=== PATIENT | male | born 1965 | race Caucasian/White ===

== ENCOUNTER 2020-03-10 23:57 | Emergency (ER) | payer MEDICAID ==
[~2020-03-10] VITALS: Ht 188 cm; Wt 113.6 kg
[2020-03-11] MEDS ORDERED: ALOG25TA2 PO (00:19)
[2020-03-11] MEDS ORDERED: HYDR25TA4 PO (00:19)
[2020-03-11] MEDS ORDERED: LISI40TA4 PO (00:19)
[2020-03-11] MEDS ORDERED: INSU100I31 SUBCUT (00:19)
[2020-03-11] MEDS ORDERED: PANT20TA18 PO (00:19)
[2020-03-11] MEDS ORDERED: SIMV40TA PO (00:19)
[2020-03-11] MEDS ORDERED: RIVA20TA PO (00:19)
[2020-03-11] MEDS ORDERED: AMLO5TAB16 PO (00:19)
[2020-03-11] MEDS ORDERED: IBUP-1986 PO (00:19)
[2020-03-11] MEDS ORDERED: METO-411 PO (00:19)
[2020-03-11] MEDS ORDERED: METF-438 PO (00:19)
[2020-03-11 00:32] LABS: BASOPHILS % (AUTO) 0.4 % (0-1); EOSINOPHILS # (AUTO) 0.1 X10'3 (0-0.9); EOSINOPHILS % (AUTO) 0.9 % (0-6); HEMATOCRIT 33.3 % (42.0-52.0); HEMOGLOBIN 11.3 g/dl (14.0-17.9); LYMPHOCYTES % (AUTO) 24.8 % (21-51); MEAN CORPUSCULAR HEMOGLOBIN 26.8 PG (27.0-31.0); MEAN CORPUSCULAR VOLUME 78.7 FL (78-98); MONOCYTES # (AUTO) 0.6 X10'3 (0-0.9); MONOCYTES % (AUTO) 7.3 % (2-12); NEUTROPHILS # (AUTO) 5.5 X10'3 (1.8-7.7); NEUTROPHILS % (AUTO) 66.6 % (42-75); PLATELET COUNT 246 X10'3 (140-440); RED BLOOD COUNT 4.22 X10'6 (4.70-6.10); RED CELL DISTRIBUTION WIDTH 16.2 % (11.5-14.5); WHITE BLOOD COUNT 8.3 X10'3 (4.5-11.0)
[2020-03-11 00:40] LABS: CLARITY,URINE CLEAR (Clear); COLOR,URINE YELLOW (Yellow); GLUCOSE, URINE >=1000 mg/dl (Neg); KETONES,URINE NEGATIVE (Neg); LEUKOCYTE ESTERASE ,URINE NEGATIVE (Neg); NITRITES, URINE NEGATIVE (Neg); OCCULT BLOOD,URINE NEGATIVE (Neg); PROTEIN,URINE TRACE mg/dl (Neg); UROBILINOGEN,URINE 0.2 E.U/dL (0.2-1.0)
[2020-03-11 00:42] LABS: UA COLLECTION TYPE URINAL
[2020-03-11 00:50] LABS: BACTERIA,URINE FEW /HPF (Neg); RBC,URINE NONE SEEN /HPF (0-2); SQUAMOUS EPITHELIAL CELL,UR FEW /LPF (FEW); WBC,URINE 0-4 /HPF (0-4)
[2020-03-11 00:55] LABS: ALANINE AMINOTRANSFERASE 19 U/L (12-78); ALBUMIN 3.1 G/DL (3.4-5.0); ALBUMIN/GLOBULIN RATIO 0.8 (1.1-1.5); ALKALINE PHOSPHATASE 99 IU/L (46-116); ANION GAP 10 (8-16); ASPARTATE AMINO TRANSFERASE 9 U/L (10-37); BILIRUBIN,TOTAL 1.2 MG/DL (0.1-1.0); BLOOD UREA NITROGEN 14 MG/DL (7-18); BUN/CREATININE RATIO 13.7 (5.4-32.0); CALCIUM 9.4 MG/DL (8.5-10.1); CHLORIDE 99 MMOL/L (99-107); CREATININE 1.02 MG/DL (0.60-1.10); GLUCOSE 382 MG/DL (70-104); POTASSIUM 3.8 MMOL/L (3.5-5.1); SODIUM 135 MMOL/L (135-145); TOTAL CARBON DIOXIDE 25.6 MMOL/L (24-32); TOTAL PROTEIN 7.1 G/DL (6.4-8.2); eGFR 76 ML/MIN
[2020-03-11 02:34] VITALS: BP 164/87
== END 2020-03-11 02:33 | disposition home or self-care (01) ==
LOC: ER 23:57
DX: R06.02 Shortness of breath (principal); R51.9 Headache, unspecified; R19.7 Diarrhea, unspecified; Z20.828 Contact with and (suspected) exposure to other viral communicable diseases; I48.92 Unspecified atrial flutter; Z98.890 Other specified postprocedural states; Z72.89 Other problems related to lifestyle; Z79.4 Long term (current) use of insulin; Z79.899 Other long term (current) drug therapy
CPT/HCPCS: 36415; 71045; 80053; 81001; 83605; 83880; 84145; 84484; 85025; 87040; 93005; 99285

== ENCOUNTER 2021-09-03 07:36 | Inpatient (IN) | payer MEDICAID ==
[~2021-09-03] VITALS: Ht 188 cm; Wt 136.4 kg
[~2021-09-03 07:36] MED LIST: ALOG25TA2 PO; AMLO5TAB16 PO; HYDR25TA4 PO; IBUP-1986 PO; INSU100I31 SUBCUT; LISI40TA13 PO; METF-438 PO; METO-411 PO; PANT20TA18 PO; RIVA20TA PO; SIMV40TA PO
[2021-09-03 08:39] LABS: BASOPHILS % (AUTO) 0.4 % (0-1); EOSINOPHILS # (AUTO) 0.1 X10'3 (0-0.9); EOSINOPHILS % (AUTO) 0.7 % (0-6); HEMATOCRIT 34.5 % (42.0-52.0); HEMOGLOBIN 11.4 g/dl (14.0-17.9); LYMPHOCYTES # (AUTO) 1.5 X10'3 (1.1-4.8); LYMPHOCYTES % (AUTO) 15.8 % (21-51); MEAN CORPUSCULAR HEMOGLOBIN 25.9 PG (27.0-31.0); MEAN CORPUSCULAR HGB CONC 33.2 g/dL (33.0-36.5); MEAN PLATELET VOLUME 8.6 FL (7.4-10.4); MONOCYTES # (AUTO) 0.8 X10'3 (0-0.9); MONOCYTES % (AUTO) 8.1 % (2-12); NEUTROPHILS # (AUTO) 7.2 X10'3 (1.8-7.7); PLATELET COUNT 193 X10'3 (140-440); RED BLOOD COUNT 4.42 X10'6 (4.70-6.10); RED CELL DISTRIBUTION WIDTH 17.8 % (11.5-14.5); WHITE BLOOD COUNT 9.6 X10'3 (4.5-11.0)
[2021-09-03 08:48] LABS: ALANINE AMINOTRANSFERASE 26 U/L (12-78); ALBUMIN 3.8 G/DL (3.4-5.0); ALKALINE PHOSPHATASE 80 IU/L (46-116); ANION GAP 9 (8-16); ASPARTATE AMINO TRANSFERASE 16 U/L (10-37); BILIRUBIN,TOTAL 1.8 MG/DL (0.1-1.0); BLOOD UREA NITROGEN 16 MG/DL (7-18); BUN/CREATININE RATIO 15.5 (5.4-32.0); CALCIUM 9.1 MG/DL (8.5-10.1); CHLORIDE 103 MMOL/L (99-107); CREATININE 1.03 MG/DL (0.60-1.10); GLUCOSE 223 MG/DL (70-104); POTASSIUM 4.1 MMOL/L (3.5-5.1); SODIUM 141 MMOL/L (135-145); TOTAL CARBON DIOXIDE 29.3 MMOL/L (24-32); TOTAL PROTEIN 7.5 G/DL (6.4-8.2); eGFR 75 ML/MIN
[2021-09-03] MEDS ORDERED: iohexol 350MG/ML 100ml bottle IV ONE (11:41)
[2021-09-03] MEDS ORDERED: levoFLOXACIN-Levaquin 750MG/D5 150 ML IV ONE (12:35)
[2021-09-03] MEDS: MESSAGE TO NURSING PO SCH (12:46)
[2021-09-03] MEDS ORDERED: mag hydrox/Alum hydrox/simeth 30ml oral suspension PO PRN (13:40)
[2021-09-03] MEDS ORDERED: acetaminophen 325mg tablet PO PRN (13:40)
[2021-09-03] MEDS ORDERED: ondansetron/PF 4mg/2ml inj IV PRN (13:40)
[2021-09-03] MEDS ORDERED: magnesium hydroxide 30ml (MOM) UD suspension PO PRN (13:40)
[2021-09-03] MEDS ORDERED: potassium CL 10mEq/100ml bag 100 ML IV PRN (13:40)
[2021-09-03] MEDS ORDERED: potassium Cl 20 mEq SR tablet PO PRN ×2 (13:40)
[2021-09-03] MEDS ORDERED: magnesium 2GM in 50ml NS 50 ML IV PRN (13:40)
[2021-09-03] MEDS ORDERED: magnesium 4gm in 100ml NS 100 ML IV PRN (13:40)
[2021-09-03] MEDS: furosemide 40mg/4ml inj IV SCH ×2 (14:09→19:43)
[2021-09-03] MEDS ORDERED: GABA300C PO (14:28)
[2021-09-03] MEDS ORDERED: CLON0.2T PO (14:28)
[2021-09-03] MEDS ORDERED: ATOR40TA71 PO (14:28)
[2021-09-03] MEDS ORDERED: IBUP-1985 PO (14:28)
[2021-09-03] MEDS ORDERED: AMLO10TA PO (14:28)
[2021-09-03] MEDS ORDERED: CARV25TA2 PO (14:28)
[2021-09-03] MEDS ORDERED: HYDR25TA5 PO (14:28)
--- NOTE | 2021-09-03 14:33 | NUR ---
Report given to JOANNA Worley in PCU.
[2021-09-03 15:00] VITALS: BP 163/81
--- NOTE | 2021-09-03 18:30 | NUR ---
Patient in room U 3012. I have received report from JOANNA Ramos and had the opportunity to ask questions and assume patient care. Addendum: 09/03/21 at 2159 by Arlen Durán RN Amended: Links added.
[2021-09-03 18:55] VITALS: BP 150/91
[2021-09-03] MEDS: cloNIDine 0.1 mg tablet PO SCH (19:44)
[2021-09-03] MEDS: gabapentin 300mg capsule PO SCH (19:45)
[2021-09-03] MEDS: ibuprofen 200mg tablet PO SCH (19:46)
[2021-09-03] MEDS: carVEDilol 12.5mg tablet PO SCH (19:47)
[2021-09-03] MEDS: rivaroxaban 20mg tablet PO SCH (19:48)
[2021-09-03] MEDS: docusate sod 100mg capsule PO SCH (19:48)
[2021-09-03] MEDS: K and/or MAG REPLACEMENT MC SCH (20:00)
[2021-09-03] MEDS: pantoprazole 40mg Tablet.DR PO SCH (20:07)
[2021-09-03] MEDS: insulin glargine (Lantus) pen - multi-dose SQ SCH (21:35)
[2021-09-03] MEDS: amLODIPine 5mg tablet PO SCH (21:38)
[2021-09-03] MEDS: lisinopril 20mg tablet PO SCH (21:38)
[2021-09-03] MEDS: atorvastatin 20mg tablet PO SCH (21:38)
[2021-09-03 21:41] VITALS: BP 169/75
[2021-09-03 22:37] VITALS: BP 156/74
[2021-09-04] VITALS (8 sets, daily range): BP systolic 109–150; BP diastolic 52–86
--- NOTE | 2021-09-04 01:25 | NUR ---
HS WAS BRIEFLY IN THE 40'S, PT AROUSABLE, NO COMPLAINTS. PT STATES HAS SLEEP APNEA, DOES NOT WEAR A CPAP, BUT STATES IS SUPPOSE TO GET ONE. BG TAKEN 225 Addendum: 09/04/21 at 0126 by Arlen Durán RN Amended: Links added.
--- NOTE | 2021-09-04 02:53 | NUR ---
HR BACK UP 60'S PT ASYMPTOMATIC. Addendum: 09/04/21 at 0253 by Arlen Durán RN Amended: Links added.
--- NOTE | 2021-09-04 03:06 | NUR ---
SAT DROPPED DOWN TO 88% ON 2L, WHILE SLEEPING, P EASILY AROUSED NO COMPLAINTS. EXPLAINED TO PT HR DROPS AND O2 SAT, WILL KEEP ON CONT PULSE OX TO CHECK SAT. PT STATES HES WAS TOLD HR DROPS LOW DURING SLEEP STUDY, STATES THAT WAS AWHILE AGO. ENC PT TO F/U WITH MD AND SLEEP STUDY FOR POSS CPAP AND DANGERS OF SLEEP APNEA. . PT STATES HE WILL F/U "I DIDN'T REALIZE IT WAS THAT IMPORTANT." Addendum: 09/04/21 at 0309 by Arlen Durán RN Amended: Links added.
[2021-09-04 05:56] LABS: BASOPHILS % (AUTO) 0.4 % (0-1); EOSINOPHILS # (AUTO) 0.1 X10'3 (0-0.9); EOSINOPHILS % (AUTO) 1.4 % (0-6); HEMATOCRIT 32.4 % (42.0-52.0); HEMOGLOBIN 10.9 g/dl (14.0-17.9); LYMPHOCYTES # (AUTO) 2.1 X10'3 (1.1-4.8); LYMPHOCYTES % (AUTO) 27.8 % (21-51); MEAN CORPUSCULAR HEMOGLOBIN 26.1 PG (27.0-31.0); MEAN CORPUSCULAR HGB CONC 33.6 g/dL (33.0-36.5); MEAN CORPUSCULAR VOLUME 77.8 FL (78-98); MEAN PLATELET VOLUME 8.4 FL (7.4-10.4); MONOCYTES # (AUTO) 0.7 X10'3 (0-0.9); MONOCYTES % (AUTO) 9.7 % (2-12); NEUTROPHILS # (AUTO) 4.7 X10'3 (1.8-7.7); NEUTROPHILS % (AUTO) 60.7 % (42-75); PLATELET COUNT 191 X10'3 (140-440); RED BLOOD COUNT 4.17 X10'6 (4.70-6.10); RED CELL DISTRIBUTION WIDTH 17.7 % (11.5-14.5); WHITE BLOOD COUNT 7.7 X10'3 (4.5-11.0)
--- NOTE | 2021-09-04 06:07 | NUR ---
Problems reprioritized. Patient report given, questions answered & plan of care reviewed with JOANNA Ramos. Addendum: 09/04/21 at 0608 by Arlen Durán RN Amended: Links added.
[2021-09-04 06:11] LABS: ALBUMIN 3.2 G/DL (3.4-5.0); ANION GAP 9 (8-16); BLOOD UREA NITROGEN 21 MG/DL (7-18); BUN/CREATININE RATIO 15.3 (5.4-32.0); CALCIUM 8.1 MG/DL (8.5-10.1); CHLORIDE 102 MMOL/L (99-107); CREATININE 1.37 MG/DL (0.60-1.10); GLUCOSE 222 MG/DL (70-104); MAGNESIUM 1.1 MG/DL (1.5-2.4); POTASSIUM 3.9 MMOL/L (3.5-5.1); SODIUM 142 MMOL/L (135-145); TOTAL CARBON DIOXIDE 31.5 MMOL/L (24-32); eGFR 54 ML/MIN
[2021-09-04] MEDS ORDERED: pneumococcal 23-VAL P-sac vacc 25 mcg/0.5ml vial IMVAC ONE (06:35)
[2021-09-04] MEDS: carVEDilol 12.5mg tablet PO SCH ×2 (07:30→17:45)
[2021-09-04] MEDS: K and/or MAG REPLACEMENT MC SCH ×2 (08:00→19:51)
[2021-09-04] MEDS: docusate sod 100mg capsule PO SCH ×2 (08:00→19:49)
[2021-09-04] MEDS: cloNIDine 0.1 mg tablet PO SCH ×2 (08:00→19:49)
[2021-09-04] MEDS: gabapentin 300mg capsule PO SCH ×2 (08:11→19:49)
[2021-09-04] MEDS: HYDROchlorothiazide 25mg tablet PO SCH (08:14)
[2021-09-04] MEDS: insulin glargine (Lantus) pen - multi-dose SQ SCH ×2 (08:21→20:49)
[2021-09-04] MEDS: ibuprofen 200mg tablet PO SCH ×3 (08:22→17:46)
[2021-09-04] MEDS: linagliptin 5mg tablet PO SCH (08:23)
[2021-09-04] MEDS: pantoprazole 40mg Tablet.DR PO SCH ×2 (08:23→19:49)
[2021-09-04] MEDS: levoFLOXACIN-Levaquin 500mg/D5 100 ML IV SCH (08:47)
[2021-09-04] MEDS: furosemide 40mg/4ml inj IV SCH (08:48)
[2021-09-04] MEDS: MESSAGE TO NURSING PO SCH (10:00)
--- NOTE | 2021-09-04 10:47 | NUR ---
DM Consult: Pt admit DX PNA and CHF exacerbation hx T2DM A1C 8.3% takes Lantus 35 units BID and metformin BID at home per EMR. Pt seen by RD for written/verbal DM ed w/ RD contact information provided. Pt reports has never received DM ed before unsure what diet guidelines are for DM. RD provided thorough DM ed reviewed types of carbs, carb portioning, hydration, protein sources, balanced meals, snacks, and encouraged pt to contact dietitian's office if further questions/concerns. Pt has no teeth reports dentures at home though no issues chewing/swallowing; does report large appetite is agreeable to double proteins TIDWM. Dietary notified. Addendum: 09/04/21 at [address] Amended: Links added.
--- NOTE | 2021-09-04 11:41 | NUR ---
observed medication administration/reviewed physical assessment documentation for [facility] director of emergency nursing Jose Luis
[2021-09-04] MEDS: rivaroxaban 20mg tablet PO SCH (17:45)
--- NOTE | 2021-09-04 18:30 | NUR ---
Patient in room U 3012. I have received report from JOANNA Ramos and had the opportunity to ask questions and assume patient care. Pt sitting up in chair no complaints. Addendum: 09/04/21 at 1855 by Arlen uDrán RN Amended: Links added.
[2021-09-04] MEDS: magnesium Cl slow-release 64mg tablet PO PRN (19:52)
[2021-09-04] MEDS: atorvastatin 20mg tablet PO SCH (20:47)
[2021-09-04] MEDS: lisinopril 20mg tablet PO SCH (20:47)
[2021-09-04] MEDS: amLODIPine 5mg tablet PO SCH (20:48)
[2021-09-05 02:00] VITALS: BP 148/68
--- NOTE | 2021-09-05 05:37 | NUR ---
AWAKE TALKING ON PHONE, NO COMPLAINTS. Addendum: 09/05/21 at 0538 by Arlen Durán RN Amended: Links added.
[2021-09-05 05:54] LABS: BASOPHILS % (AUTO) 0.5 % (0-1); EOSINOPHILS # (AUTO) 0.2 X10'3 (0-0.9); EOSINOPHILS % (AUTO) 1.8 % (0-6); HEMATOCRIT 34.1 % (42.0-52.0); HEMOGLOBIN 11.2 g/dl (14.0-17.9); LYMPHOCYTES % (AUTO) 22.7 % (21-51); MEAN CORPUSCULAR HEMOGLOBIN 25.5 PG (27.0-31.0); MEAN CORPUSCULAR VOLUME 77.3 FL (78-98); MEAN PLATELET VOLUME 8.2 FL (7.4-10.4); MONOCYTES # (AUTO) 0.8 X10'3 (0-0.9); MONOCYTES % (AUTO) 9.1 % (2-12); NEUTROPHILS # (AUTO) 5.7 X10'3 (1.8-7.7); NEUTROPHILS % (AUTO) 65.9 % (42-75); PLATELET COUNT 210 X10'3 (140-440); RED BLOOD COUNT 4.41 X10'6 (4.70-6.10); RED CELL DISTRIBUTION WIDTH 17.6 % (11.5-14.5); WHITE BLOOD COUNT 8.7 X10'3 (4.5-11.0)
[2021-09-05 06:00] VITALS: BP 156/89
[2021-09-05 06:12] LABS: ALBUMIN 3.1 G/DL (3.4-5.0); ANION GAP 11 (8-16); BLOOD UREA NITROGEN 31 MG/DL (7-18); BUN/CREATININE RATIO 22.8 (5.4-32.0); CALCIUM 8.3 MG/DL (8.5-10.1); CHLORIDE 102 MMOL/L (99-107); CREATININE 1.36 MG/DL (0.60-1.10); GLUCOSE 209 MG/DL (70-104); MAGNESIUM 1.3 MG/DL (1.5-2.4); POTASSIUM 3.6 MMOL/L (3.5-5.1); SODIUM 139 MMOL/L (135-145); TOTAL CARBON DIOXIDE 26.5 MMOL/L (24-32); eGFR 54 ML/MIN
[2021-09-05] MEDS: K and/or MAG REPLACEMENT MC SCH (08:00)
[2021-09-05] MEDS ORDERED: furosemide 40mg/4ml inj IV SCH (08:00)
[2021-09-05] MEDS: insulin glargine (Lantus) pen - multi-dose SQ SCH (08:06)
[2021-09-05] MEDS: levoFLOXACIN-Levaquin 500mg/D5 100 ML IV SCH (08:09)
[2021-09-05] MEDS: pantoprazole 40mg Tablet.DR PO SCH (08:10)
[2021-09-05] MEDS: gabapentin 300mg capsule PO SCH (08:10)
[2021-09-05] MEDS: linagliptin 5mg tablet PO SCH (08:10)
[2021-09-05] MEDS: cloNIDine 0.1 mg tablet PO SCH (08:10)
[2021-09-05] MEDS: carVEDilol 12.5mg tablet PO SCH (08:10)
[2021-09-05] MEDS: docusate sod 100mg capsule PO SCH (08:10)
[2021-09-05] MEDS: ibuprofen 200mg tablet PO SCH (08:11)
[2021-09-05] MEDS: HYDROchlorothiazide 25mg tablet PO SCH (08:11)
[2021-09-05] MEDS: magnesium Cl slow-release 64mg tablet PO PRN (08:13)
[2021-09-05] MEDS ORDERED: pneumococcal 23-VAL P-sac vacc 25 mcg/0.5ml vial IMVAC ONE (10:00)
[2021-09-05] MEDS ORDERED: POTA-207 PO (10:42)
[2021-09-05] MEDS ORDERED: FURO-149 PO (10:42)
--- NOTE | 2021-09-05 11:57 | NUR ---
Discharge paperwork reviewed with patient. Home medication returned from pharmacy, sent home with patient as well as rest of belongings. IV removed, catheter tip intact. Patient free from injuries.
== END 2021-09-05 11:55 | disposition home or self-care (01) | DRG 194 ==
LOC: ER 07:37 → ED HOLD 13:46 → EDBEDREQ 14:01 → PCU 3S 14:49
PROVIDERS: ADMIT Family Medicine; ATTEND Family Medicine
PROC: B32T1ZZ Computerized Tomography (CT Scan) of Left Pulmonary Artery using Low Osmolar Contrast (ICD-10-PCS; principal; 2021-09-03)
PROC: B3201ZZ Computerized Tomography (CT Scan) of Thoracic Aorta using Low Osmolar Contrast (ICD-10-PCS; 2021-09-03)
PROC: B32S1ZZ Computerized Tomography (CT Scan) of Right Pulmonary Artery using Low Osmolar Contrast (ICD-10-PCS; 2021-09-03)
DX: I11.0 Hypertensive heart disease with heart failure (principal); I27.20 Pulmonary hypertension, unspecified; J18.9 Pneumonia, unspecified organism; I50.33 Acute on chronic diastolic (congestive) heart failure; E11.9 Type 2 diabetes mellitus without complications; E66.01 Morbid (severe) obesity due to excess calories; E78.5 Hyperlipidemia, unspecified; Z20.822 Contact with and (suspected) exposure to COVID-19; I48.91 Unspecified atrial fibrillation; G47.30 Sleep apnea, unspecified; Z79.899 Other long term (current) drug therapy; Z68.38 Body mass index [BMI] 38.0-38.9, adult
CPT/HCPCS: 36415; 71045; 71275; 80048; 80053; 82948; 83036; 83605; 83735; 83880; 84484; 85025; 87040; 87081; 87502; 87503; 87635; 93005; 93306; 96365; 97161; 99285; C9803; G0378; J1815; J1940; J1956; Q9967

== ENCOUNTER 2022-06-15 21:11 | Inpatient (IN) | payer MEDICAID ==
[~2022-06-15] VITALS: Ht 193 cm; Wt 142.5 kg
[~2022-06-15 21:11] MED LIST changes: +AMLO10TA PO; -AMLO5TAB16 PO; +ATOR40TA71 PO; +CARV25TA2 PO; +CLON0.2T PO; +FURO-149 PO; +GABA300C PO; -HYDR25TA4 PO; +HYDR25TA5 PO; +IBUP-1985 PO; -IBUP-1986 PO; -METO-411 PO; -SIMV40TA PO; +temazepam 15mg capsule PO PRN
[2022-06-15 21:38] LABS: BASOPHILS % (AUTO) 0.3 % (0-1); EOSINOPHILS # (AUTO) 0.1 X10'3 (0-0.9); EOSINOPHILS % (AUTO) 1.1 % (0-6); HEMATOCRIT 32.9 % (42.0-52.0); HEMOGLOBIN 10.5 g/dl (14.0-17.9); LYMPHOCYTES # (AUTO) 1.4 X10'3 (1.1-4.8); LYMPHOCYTES % (AUTO) 11.9 % (21-51); MEAN CORPUSCULAR HEMOGLOBIN 25.7 PG (27.0-31.0); MEAN CORPUSCULAR HGB CONC 31.8 g/dL (33.0-36.5); MEAN CORPUSCULAR VOLUME 80.8 FL (78-98); MEAN PLATELET VOLUME 8.3 FL (7.4-10.4); MONOCYTES % (AUTO) 8.5 % (2-12); NEUTROPHILS # (AUTO) 9.3 X10'3 (1.8-7.7); NEUTROPHILS % (AUTO) 78.2 % (42-75); PLATELET COUNT 247 X10'3 (140-440); RED BLOOD COUNT 4.08 X10'6 (4.70-6.10); RED CELL DISTRIBUTION WIDTH 18.5 % (11.5-14.5); WHITE BLOOD COUNT 11.9 X10'3 (4.5-11.0)
[2022-06-15] MEDS ORDERED: nitroGLYCERIN 0.4mg/hour patch TD ONE (21:40)
[2022-06-15] MEDS ORDERED: enalaprilat dihydrate 2.5mg/2ml vial IV ONE (21:40)
[2022-06-15] MEDS ORDERED: furosemide 10 MG/1 ML 10ml inj IV ONE (21:40)
[2022-06-15 21:47] LABS: ALANINE AMINOTRANSFERASE 26 U/L (12-78); ALBUMIN 3.5 G/DL (3.4-5.0); ALKALINE PHOSPHATASE 84 IU/L (46-116); ANION GAP 11 (8-16); ASPARTATE AMINO TRANSFERASE 14 U/L (10-37); BILIRUBIN,TOTAL 2.1 MG/DL (0.1-1.0); BLOOD UREA NITROGEN 18 MG/DL (7-18); BUN/CREATININE RATIO 11.7 (5.4-32.0); CHLORIDE 106 MMOL/L (99-107); CREATININE 1.54 MG/DL (0.60-1.10); GLUCOSE 175 MG/DL (70-104); SODIUM 144 MMOL/L (135-145); TOTAL CARBON DIOXIDE 27.2 MMOL/L (24-32); TOTAL PROTEIN 7.1 G/DL (6.4-8.2); eGFR 47 ML/MIN
[2022-06-15 21:53] LABS: MAGNESIUM 1.8 MG/DL (1.5-2.4)
[2022-06-15] MEDS ORDERED: mag hydrox/Alum hydrox/simeth 30ml oral suspension PO PRN (22:05)
[2022-06-15] MEDS ORDERED: glucagon, human recombinant 1mg kit SUBCUT PRN (22:05)
[2022-06-15] MEDS ORDERED: magnesium Cl slow-release 64mg tablet PO PRN (22:05)
[2022-06-15] MEDS ORDERED: dextrose 50%-water 50ml dispensing syringe IV PRN ×2 (22:05)
[2022-06-15] MEDS ORDERED: potassium Cl 40MEQ/1/2NS 520ml 520 ML IV PRN (22:05)
[2022-06-15] MEDS ORDERED: magnesium hydroxide 30ml (MOM) UD suspension PO PRN (22:05)
[2022-06-15] MEDS ORDERED: acetaminophen 650mg rectal suppository RC PRN (22:05)
[2022-06-15] MEDS ORDERED: ondansetron 4mg rapidly disintigrating tab PO PRN (22:05)
[2022-06-15] MEDS ORDERED: enalaprilat dihydrate 2.5mg/2ml vial IV PRN (22:05)
[2022-06-15] MEDS ORDERED: PERFLUTREN PROTEIN-A MICROSPHR (Optison) 0.22 MG/ML 3ML VIAL IV PRN (22:05)
[2022-06-15] MEDS ORDERED: potassium Cl 20 mEq SR tablet PO PRN (22:05)
[2022-06-15] MEDS ORDERED: MESSAGE TO PHARMACY PO ONE (22:05)
[2022-06-15] MEDS ORDERED: magnesium 4gm in 100ml NS 100 ML IV PRN (22:05)
[2022-06-15] MEDS ORDERED: acetaminophen 325mg tablet PO PRN (22:05)
[2022-06-15] MEDS ORDERED: ondansetron/PF 4mg/2ml inj IV PRN (22:05)
[2022-06-15] MEDS ORDERED: DEXTROSE 15 GM of carb/4 tabs (each vial/BOTTLE has 4 tablets) PO PRN ×2 (22:05)
[2022-06-15] MEDS: acetaminophen 325mg tablet PO PRN (22:44)
--- NOTE | 2022-06-15 22:45 | NUR ---
c/o DUFF. Gave him tylenol. He has company.
[2022-06-15] MEDS: ipratropium/albuterol 3ml nebule NEB PRN (23:44)
[2022-06-16 03:02] LABS: BASOPHILS % (AUTO) 0.4 % (0-1); EOSINOPHILS # (AUTO) 0.1 X10'3 (0-0.9); EOSINOPHILS % (AUTO) 1.1 % (0-6); HEMATOCRIT 32.1 % (42.0-52.0); HEMOGLOBIN 10.4 g/dl (14.0-17.9); LYMPHOCYTES # (AUTO) 1.2 X10'3 (1.1-4.8); LYMPHOCYTES % (AUTO) 10.9 % (21-51); MEAN CORPUSCULAR HGB CONC 32.3 g/dL (33.0-36.5); MEAN CORPUSCULAR VOLUME 80.5 FL (78-98); MEAN PLATELET VOLUME 8.8 FL (7.4-10.4); MONOCYTES % (AUTO) 9.4 % (2-12); NEUTROPHILS # (AUTO) 8.6 X10'3 (1.8-7.7); NEUTROPHILS % (AUTO) 78.2 % (42-75); PLATELET COUNT 233 X10'3 (140-440); RED BLOOD COUNT 3.99 X10'6 (4.70-6.10); RED CELL DISTRIBUTION WIDTH 18.9 % (11.5-14.5)
[2022-06-16 03:13] LABS: ALANINE AMINOTRANSFERASE 23 U/L (12-78); ALBUMIN 3.4 G/DL (3.4-5.0); ALBUMIN/GLOBULIN RATIO 0.9 (1.1-1.5); ALKALINE PHOSPHATASE 86 IU/L (46-116); ANION GAP 8 (8-16); ASPARTATE AMINO TRANSFERASE 13 U/L (10-37); BILIRUBIN,TOTAL 2.4 MG/DL (0.1-1.0); BLOOD UREA NITROGEN 20 MG/DL (7-18); CHLORIDE 104 MMOL/L (99-107); CREATININE 1.54 MG/DL (0.60-1.10); GLUCOSE 187 MG/DL (70-104); POTASSIUM 3.6 MMOL/L (3.5-5.1); SODIUM 143 MMOL/L (135-145); TOTAL CARBON DIOXIDE 30.6 MMOL/L (24-32); TOTAL PROTEIN 7.2 G/DL (6.4-8.2); eGFR 47 ML/MIN
[2022-06-16 03:18] LABS: MAGNESIUM 1.8 MG/DL (1.5-2.4); PHOSPHORUS 4.8 MG/DL (2.3-4.5)
[2022-06-16 03:50] LABS: ANISOCYTOSIS 2+; ELLIPTOCYTES 1+; PLATELET ESTIMATE NORMAL
[2022-06-16 03:51] LABS: POLYCHROMASIA 2+; ROULEAUX 1+
[2022-06-16 03:52] LABS: HYPOCHROMASIA 1+
[2022-06-16 04:00] LABS: ABG BASE EXCESS 3.6 mmol/L (-2.0-2.0); ABG OXYGEN SATURATION 85.2 % (94-97); ABG PCO2 (T) 47.6 mmHg (35.0-48.0); ABG PO2 (T) 50.9 mmHg (75.0-100.0); ALLEN'S TEST POSITIVE; FCOHb 1.5 % (0.0-3.9); FLOW 6 L/min; FO2Hb 83.9 % (94-97)
--- NOTE | 2022-06-16 04:22 | NUR ---
PT PLACED ON CPAP BY RESP.
[2022-06-16] MEDS ORDERED: LORazepam 2 mg/ml vial IV PRN (05:10)
[2022-06-16] MEDS: acetaminophen 325mg tablet PO PRN ×3 (05:16→17:19)
--- NOTE | 2022-06-16 05:22 | NUR ---
PT AWOKE FEELING ANXIOUS AND REMOVED HIS CPAP. PT REQUESTED ANTIANXIETY MEDICATION SO THAT HE CAN PUT HIS MASK BACK ON AND SLEEP. PT GIVEN ATIVAN PER DR. BARROSO'S ORDERS.
[2022-06-16] MEDS ORDERED: LIRA0.6P2 SUBCUT (05:33)
[2022-06-16] MEDS ORDERED: ALBU18HF2 INH (05:33)
[2022-06-16] MEDS ORDERED: DAPA5TAB PO (05:34)
[2022-06-16] MEDS ORDERED: non-formulary drug (Carvedilol 1 TABLET) PO SCH (07:30)
[2022-06-16] MEDS ORDERED: insulin glargine (Lantus) pen - multi-dose SQ SCH (08:00)
[2022-06-16] MEDS: K and/or MAG REPLACEMENT MC SCH ×2 (08:00→20:00)
[2022-06-16] MEDS: furosemide 40mg/4ml inj IV SCH ×2 (08:27→20:19)
[2022-06-16] MEDS: carVEDilol 12.5mg tablet PO SCH ×2 (08:28→19:59)
[2022-06-16] MEDS: docusate sod 100mg capsule PO SCH ×2 (08:50→19:59)
[2022-06-16] MEDS: pantoprazole 40mg Tablet.DR PO SCH ×2 (08:50→20:01)
[2022-06-16] MEDS: gabapentin 300mg capsule PO SCH ×2 (08:51→20:00)
[2022-06-16] MEDS: metFORMIN 500mg tablet PO SCH ×2 (08:51→17:43)
[2022-06-16] MEDS: cloNIDine 0.1 mg tablet PO SCH ×2 (08:52→19:59)
[2022-06-16] MEDS: atorvastatin 20mg tablet PO SCH (08:53)
[2022-06-16] MEDS: amLODIPine 5mg tablet PO SCH (08:53)
[2022-06-16] MEDS: linagliptin 5mg tablet PO SCH (09:42)
[2022-06-16] MEDS: DAPAGLIFLOZIN 10MG TABLET PO SCH (09:42)
--- NOTE | 2022-06-16 10:41 | NUR ---
Pt has a family member at bedside. I asked the family to take all the home meds brought in by patient.
--- NOTE | 2022-06-16 11:45 | NUR ---
Pt was getting irritated because he has not transferred to PCU yet, I told him that there's no bed available yet at this time. I called the pump house operator to find out the status of patient's bed. Magdalena said that there was 2 patients ahead of him and that patient hopefully get a bed soon. Spoke to charge nurse Margi to about this, she requested for a hospital bed.
[2022-06-16] MEDS: insulin Lispro (HumaLOG) vial - multi-dose SQ SCH (13:48)
--- NOTE | 2022-06-16 15:58 | NUR ---
LN received bedside report from ER nurse. patient arrived on floor at approx 1558.
[2022-06-16 16:01] VITALS: BP 124/68
[2022-06-16] MEDS: cefepime 1GM/NS ADD-VANTAGE 100 ML IV SCH ×2 (17:13→23:09)
[2022-06-16 18:00] VITALS: BP 172/84
[2022-06-16] MEDS ORDERED: rivaroxaban 20mg tablet PO SCH (18:00)
--- NOTE | 2022-06-16 18:30 | NUR ---
Patient in room PCU 3027. I have received report from Leila HERNANDEZ and had the opportunity to ask questions and assume patient care.
[2022-06-16 20:18] VITALS: BP 169/83
[2022-06-16] MEDS ORDERED: non-formulary drug (Amlodipine Besylate 1 TABLET) PO SCH (21:00)
[2022-06-16] MEDS: insulin glargine (Lantus) pen - multi-dose SQ SCH (21:00)
[2022-06-16] MEDS: HYDROcodone/acetaminophen 5mg/325mg tablet PO PRN (21:27)
[2022-06-16] MEDS: lisinopril 20mg tablet PO SCH (21:30)
[2022-06-16 22:00] VITALS: BP 169/83
[2022-06-16] MEDS: ipratropium/albuterol 3ml nebule NEB PRN (23:14)
[2022-06-17] VITALS (10 sets, daily range): BP systolic 104–153; BP diastolic 44–80
[2022-06-17] MEDS: HYDROcodone/acetaminophen 5mg/325mg tablet PO PRN ×5 (02:58→21:22)
[2022-06-17] MEDS: ipratropium/albuterol 3ml nebule NEB PRN (03:10)
--- NOTE | 2022-06-17 05:18 | NUR ---
Checked physical assessment and agree with.
--- NOTE | 2022-06-17 06:31 | NUR ---
Problems reprioritized. Patient report given, questions answered & plan of care reviewed with Brittany HERNANDEZ.
[2022-06-17 06:33] LABS: ALANINE AMINOTRANSFERASE 15 U/L (12-78); ALBUMIN 2.9 G/DL (3.4-5.0); ALBUMIN/GLOBULIN RATIO 0.8 (1.1-1.5); ALKALINE PHOSPHATASE 73 IU/L (46-116); ANION GAP 9 (8-16); ASPARTATE AMINO TRANSFERASE 12 U/L (10-37); BILIRUBIN,TOTAL 2.2 MG/DL (0.1-1.0); BLOOD UREA NITROGEN 25 MG/DL (7-18); BUN/CREATININE RATIO 19.7 (5.4-32.0); CALCIUM 8.2 MG/DL (8.5-10.1); CHLORIDE 103 MMOL/L (99-107); CREATININE 1.27 MG/DL (0.60-1.10); GLUCOSE 138 MG/DL (70-104); MAGNESIUM 1.7 MG/DL (1.5-2.4); POTASSIUM 3.2 MMOL/L (3.5-5.1); SODIUM 142 MMOL/L (135-145); TOTAL CARBON DIOXIDE 30.4 MMOL/L (24-32); TOTAL PROTEIN 6.7 G/DL (6.4-8.2); eGFR 59 ML/MIN
[2022-06-17 06:57] LABS: BASOPHILS % (AUTO) 0.5 % (0-1); EOSINOPHILS # (AUTO) 0.1 X10'3 (0-0.9); EOSINOPHILS % (AUTO) 0.9 % (0-6); HEMATOCRIT 29.4 % (42.0-52.0); HEMOGLOBIN 9.5 g/dl (14.0-17.9); LYMPHOCYTES # (AUTO) 1.6 X10'3 (1.1-4.8); LYMPHOCYTES % (AUTO) 19.1 % (21-51); MEAN CORPUSCULAR HEMOGLOBIN 25.8 PG (27.0-31.0); MEAN CORPUSCULAR HGB CONC 32.4 g/dL (33.0-36.5); MEAN CORPUSCULAR VOLUME 79.8 FL (78-98); MEAN PLATELET VOLUME 8.5 FL (7.4-10.4); MONOCYTES # (AUTO) 0.9 X10'3 (0-0.9); MONOCYTES % (AUTO) 11.1 % (2-12); NEUTROPHILS # (AUTO) 5.6 X10'3 (1.8-7.7); NEUTROPHILS % (AUTO) 68.4 % (42-75); PLATELET COUNT 237 X10'3 (140-440); RED BLOOD COUNT 3.69 X10'6 (4.70-6.10); RED CELL DISTRIBUTION WIDTH 18.8 % (11.5-14.5); WHITE BLOOD COUNT 8.1 X10'3 (4.5-11.0)
[2022-06-17] MEDS: cefepime 1GM/NS ADD-VANTAGE 100 ML IV SCH ×2 (07:49→15:47)
[2022-06-17] MEDS: furosemide 40mg/4ml inj IV SCH ×2 (07:49→19:20)
[2022-06-17] MEDS: carVEDilol 12.5mg tablet PO SCH ×2 (08:11→19:18)
[2022-06-17] MEDS: linagliptin 5mg tablet PO SCH (08:11)
[2022-06-17] MEDS: pantoprazole 40mg Tablet.DR PO SCH ×2 (08:11→19:14)
[2022-06-17] MEDS: cloNIDine 0.1 mg tablet PO SCH ×2 (08:11→19:17)
[2022-06-17] MEDS: amLODIPine 5mg tablet PO SCH (08:12)
[2022-06-17] MEDS: DAPAGLIFLOZIN 10MG TABLET PO SCH (08:12)
[2022-06-17] MEDS: atorvastatin 20mg tablet PO SCH (08:12)
[2022-06-17] MEDS: metFORMIN 500mg tablet PO SCH ×2 (08:12→17:33)
[2022-06-17] MEDS: gabapentin 300mg capsule PO SCH ×2 (08:13→19:14)
[2022-06-17] MEDS: docusate sod 100mg capsule PO SCH ×2 (08:13→19:13)
[2022-06-17] MEDS: K and/or MAG REPLACEMENT MC SCH ×2 (08:18→19:27)
[2022-06-17] MEDS: potassium Cl 20 mEq SR tablet PO PRN ×3 (08:24→17:33)
[2022-06-17] MEDS: insulin Lispro (HumaLOG) vial - multi-dose SQ SCH ×3 (08:31→19:11)
--- NOTE | 2022-06-17 15:52 | NUR ---
[id number]-Jonatan Angela--brief episodes of SB-HR drops to mid 30's-current VS BP 125/58 HR 73 Afib--gets 25mg BID coreg-med change? Brittany x [phone]
[2022-06-17] MEDS: rivaroxaban 20mg tablet PO SCH (18:45)
[2022-06-17] MEDS: lisinopril 20mg tablet PO SCH (21:19)
[2022-06-17] MEDS: insulin glargine (Lantus) pen - multi-dose SQ SCH (21:29)
[2022-06-18] MEDS: cefepime 1GM/NS ADD-VANTAGE 100 ML IV SCH ×2 (00:26→09:38)
[2022-06-18 02:00] VITALS: BP 98/44
[2022-06-18] MEDS: HYDROcodone/acetaminophen 5mg/325mg tablet PO PRN ×4 (03:39→19:36)
[2022-06-18 06:11] LABS: BASOPHILS % (AUTO) 0.5 % (0-1); EOSINOPHILS # (AUTO) 0.2 X10'3 (0-0.9); EOSINOPHILS % (AUTO) 2.8 % (0-6); HEMATOCRIT 29.5 % (42.0-52.0); HEMOGLOBIN 9.4 g/dl (14.0-17.9); LYMPHOCYTES # (AUTO) 1.5 X10'3 (1.1-4.8); LYMPHOCYTES % (AUTO) 20.1 % (21-51); MEAN CORPUSCULAR HEMOGLOBIN 25.7 PG (27.0-31.0); MEAN CORPUSCULAR HGB CONC 31.9 g/dL (33.0-36.5); MEAN CORPUSCULAR VOLUME 80.5 FL (78-98); MEAN PLATELET VOLUME 7.9 FL (7.4-10.4); MONOCYTES # (AUTO) 0.8 X10'3 (0-0.9); MONOCYTES % (AUTO) 10.4 % (2-12); NEUTROPHILS # (AUTO) 5.1 X10'3 (1.8-7.7); NEUTROPHILS % (AUTO) 66.2 % (42-75); PLATELET COUNT 234 X10'3 (140-440); RED BLOOD COUNT 3.67 X10'6 (4.70-6.10); RED CELL DISTRIBUTION WIDTH 18.7 % (11.5-14.5); WHITE BLOOD COUNT 7.6 X10'3 (4.5-11.0)
[2022-06-18 06:14] LABS: ALANINE AMINOTRANSFERASE 19 U/L (12-78); ALBUMIN 2.8 G/DL (3.4-5.0); ALBUMIN/GLOBULIN RATIO 0.8 (1.1-1.5); ALKALINE PHOSPHATASE 70 IU/L (46-116); ANION GAP 8 (8-16); ASPARTATE AMINO TRANSFERASE 11 U/L (10-37); BILIRUBIN,TOTAL 1.4 MG/DL (0.1-1.0); BLOOD UREA NITROGEN 34 MG/DL (7-18); BUN/CREATININE RATIO 24.5 (5.4-32.0); CALCIUM 8.3 MG/DL (8.5-10.1); CHLORIDE 102 MMOL/L (99-107); CREATININE 1.39 MG/DL (0.60-1.10); GLUCOSE 172 MG/DL (70-104); MAGNESIUM 1.8 MG/DL (1.5-2.4); PHOSPHORUS 3.7 MG/DL (2.3-4.5); SODIUM 141 MMOL/L (135-145); TOTAL PROTEIN 6.5 G/DL (6.4-8.2); eGFR 53 ML/MIN
--- NOTE | 2022-06-18 06:28 | NUR ---
Report given to Gabbi MARSHALL
[2022-06-18] MEDS: metFORMIN 500mg tablet PO SCH ×2 (07:30→18:56)
[2022-06-18] MEDS: DAPAGLIFLOZIN 10MG TABLET PO SCH (08:00)
[2022-06-18] MEDS: K and/or MAG REPLACEMENT MC SCH ×2 (08:00→20:00)
[2022-06-18] MEDS: amLODIPine 5mg tablet PO SCH (09:38)
[2022-06-18] MEDS: gabapentin 300mg capsule PO SCH ×2 (09:39→19:34)
[2022-06-18] MEDS: linagliptin 5mg tablet PO SCH (09:39)
[2022-06-18] MEDS: atorvastatin 20mg tablet PO SCH (09:39)
[2022-06-18] MEDS: cloNIDine 0.1 mg tablet PO SCH ×2 (09:39→19:33)
[2022-06-18] MEDS: carVEDilol 12.5mg tablet PO SCH ×2 (09:40→19:34)
[2022-06-18] MEDS: pantoprazole 40mg Tablet.DR PO SCH ×2 (09:41→19:34)
[2022-06-18] MEDS: docusate sod 100mg capsule PO SCH ×2 (09:41→19:33)
[2022-06-18] MEDS: furosemide 40mg/4ml inj IV SCH ×2 (09:43→19:35)
[2022-06-18] MEDS ORDERED: levoFLOXACIN 250mg tablet PO SCH (11:20)
[2022-06-18] MEDS: ipratropium/albuterol 3ml nebule NEB PRN (12:00)
--- NOTE | 2022-06-18 13:40 | NUR ---
Paged Dr. Wei regarding pts lexiscan results. PAGER ID: [phone] MESSAGE: [phone], Samuelneena Faulkner. Pts lexiscan results are available. Lasix given about an hour ago. He has voided once. Gabbi [facility] [id number]
[2022-06-18] MEDS: insulin Lispro (HumaLOG) vial - multi-dose SQ SCH (13:49)
[2022-06-18 18:00] VITALS: BP 163/69
[2022-06-18] MEDS: rivaroxaban 20mg tablet PO SCH (18:56)
--- NOTE | 2022-06-18 19:10 | NUR ---
Problems reprioritized. Patient report given, questions answered & plan of care reviewed with Lachelle RN, patient stable at transfer of care.
[2022-06-18] MEDS: lisinopril 20mg tablet PO SCH (21:09)
[2022-06-18] MEDS: insulin glargine (Lantus) pen - multi-dose SQ SCH (21:16)
[2022-06-18 22:00] VITALS: BP 154/70
[2022-06-19] MEDS: HYDROcodone/acetaminophen 5mg/325mg tablet PO PRN ×2 (00:43→08:40)
[2022-06-19 02:00] VITALS: BP 139/69
[2022-06-19 06:05] LABS: BASOPHILS % (AUTO) 0.5 % (0-1); EOSINOPHILS # (AUTO) 0.1 X10'3 (0-0.9); HEMATOCRIT 29.1 % (42.0-52.0); HEMOGLOBIN 9.4 g/dl (14.0-17.9); LYMPHOCYTES # (AUTO) 1.6 X10'3 (1.1-4.8); MEAN CORPUSCULAR HEMOGLOBIN 25.6 PG (27.0-31.0); MEAN CORPUSCULAR HGB CONC 32.3 g/dL (33.0-36.5); MEAN CORPUSCULAR VOLUME 79.2 FL (78-98); MEAN PLATELET VOLUME 7.8 FL (7.4-10.4); MONOCYTES # (AUTO) 0.6 X10'3 (0-0.9); MONOCYTES % (AUTO) 8.4 % (2-12); NEUTROPHILS # (AUTO) 4.9 X10'3 (1.8-7.7); NEUTROPHILS % (AUTO) 67.1 % (42-75); PLATELET COUNT 245 X10'3 (140-440); RED BLOOD COUNT 3.68 X10'6 (4.70-6.10); RED CELL DISTRIBUTION WIDTH 18.5 % (11.5-14.5); WHITE BLOOD COUNT 7.2 X10'3 (4.5-11.0)
[2022-06-19 06:15] LABS: ALANINE AMINOTRANSFERASE 13 U/L (12-78); ALBUMIN 2.8 G/DL (3.4-5.0); ALBUMIN/GLOBULIN RATIO 0.7 (1.1-1.5); ALKALINE PHOSPHATASE 71 IU/L (46-116); ANION GAP 7 (8-16); ASPARTATE AMINO TRANSFERASE 13 U/L (10-37); BLOOD UREA NITROGEN 28 MG/DL (7-18); BUN/CREATININE RATIO 23.1 (5.4-32.0); CALCIUM 8.3 MG/DL (8.5-10.1); CHLORIDE 103 MMOL/L (99-107); CREATININE 1.21 MG/DL (0.60-1.10); GLUCOSE 181 MG/DL (70-104); PHOSPHORUS 2.8 MG/DL (2.3-4.5); POTASSIUM 3.4 MMOL/L (3.5-5.1); SODIUM 140 MMOL/L (135-145); TOTAL CARBON DIOXIDE 30.2 MMOL/L (24-32); TOTAL PROTEIN 6.6 G/DL (6.4-8.2); eGFR 62 ML/MIN
--- NOTE | 2022-06-19 06:39 | NUR ---
report given to Gabbi MARSHALL
[2022-06-19] MEDS ORDERED: potassium Cl 20 mEq SR tablet PO ONE (08:10)
[2022-06-19] MEDS ORDERED: FURO-149 PO (08:10)
[2022-06-19] MEDS: atorvastatin 20mg tablet PO SCH (08:40)
[2022-06-19] MEDS: metFORMIN 500mg tablet PO SCH (08:40)
[2022-06-19 08:41] VITALS: BP_SYST 153
[2022-06-19] MEDS: DAPAGLIFLOZIN 10MG TABLET PO SCH (08:41)
[2022-06-19] MEDS: pantoprazole 40mg Tablet.DR PO SCH (08:41)
[2022-06-19] MEDS: gabapentin 300mg capsule PO SCH (08:41)
[2022-06-19] MEDS: linagliptin 5mg tablet PO SCH (08:41)
[2022-06-19] MEDS: cloNIDine 0.1 mg tablet PO SCH (08:41)
[2022-06-19] MEDS: amLODIPine 5mg tablet PO SCH (08:41)
[2022-06-19] MEDS: carVEDilol 12.5mg tablet PO SCH (08:41)
[2022-06-19] MEDS: docusate sod 100mg capsule PO SCH (08:42)
[2022-06-19] MEDS: furosemide 40mg/4ml inj IV SCH (08:50)
--- NOTE | 2022-06-19 10:11 | NUR ---
Pt stable for discharge per Dr. Wei. All discharge instructions reviewed with patient and all questions answered, pt verbalized understanding. No new medication ordered, just a change to the lasix, from daily to BID. PIV discontinued, cannula intact. Tele discontinued. All belongings collected and sent with patient. Wheeled to lobby via nursing staff and picked up by significant other.
== END 2022-06-19 09:51 | disposition home or self-care (01) | DRG 139 ==
LOC: ER 21:11 → ED HOLD 22:13 → UNDOADMIN 22:56 → EDBEDREQ 06-16 15:07 → ED HOLD 06-16 15:49 → PCU 3S 06-16 15:49
PROVIDERS: ADMIT Family Medicine; ATTEND Family Medicine
PROC: 5A0935A Assistance with Respiratory Ventilation, Less than 24 Consecutive Hours, High Flow/Velocity Cannula (ICD-10-PCS; 2022-06-16)
PROC: BW241ZZ Computerized Tomography (CT Scan) of Chest and Abdomen using Low Osmolar Contrast (ICD-10-PCS; 2022-06-16)
PROC: 5A0935A Assistance with Respiratory Ventilation, Less than 24 Consecutive Hours, High Flow/Velocity Cannula (ICD-10-PCS; 2022-06-17)
PROC: 5A09357 Assistance with Respiratory Ventilation, Less than 24 Consecutive Hours, Continuous Positive Airway Pressure (ICD-10-PCS; principal; 2022-06-18)
PROC: 5A0935A Assistance with Respiratory Ventilation, Less than 24 Consecutive Hours, High Flow/Velocity Cannula (ICD-10-PCS; 2022-06-18)
DX: J18.9 Pneumonia, unspecified organism (principal); J96.21 Acute and chronic respiratory failure with hypoxia; I50.33 Acute on chronic diastolic (congestive) heart failure; E11.22 Type 2 diabetes mellitus with diabetic chronic kidney disease; I13.0 Hypertensive heart and chronic kidney disease with heart failure and stage 1 through stage 4 chronic kidney disease, or unspecified chronic kidney disease; Z99.81 Dependence on supplemental oxygen; I48.0 Paroxysmal atrial fibrillation; E78.00 Pure hypercholesterolemia, unspecified; N18.30 Chronic kidney disease, stage 3 unspecified; E87.6 Hypokalemia; G47.33 Obstructive sleep apnea (adult) (pediatric); Z56.0 Unemployment, unspecified; Z79.01 Long term (current) use of anticoagulants; Z82.49 Family history of ischemic heart disease and other diseases of the circulatory system; Z79.899 Other long term (current) drug therapy
CPT/HCPCS: 36415; 36600; 71045; 71250; 80053; 82803; 82948; 83735; 83880; 84100; 84145; 84484; 85008; 85018; 85025; 87081; 87502; 87503; 87811; 93005; 93306; 94640; 94660; 94760; 99285; A4615; G0378; J0692; J1815; J1940; J2060; J3490; J7040

== ENCOUNTER 2022-07-02 06:44 | Inpatient (IN) | payer MEDICAID ==
[~2022-07-02] VITALS: Ht 188 cm; Wt 141.8 kg
[~2022-07-02 06:44] MED LIST changes: +ALBU18HF2 INH; +DAPA5TAB PO; +LIRA0.6P2 SUBCUT; -temazepam 15mg capsule PO PRN
--- NOTE | 2022-07-02 07:32 | NUR ---
Dr. Real notified about temp 99 F, I asked him if he wants me to do blood culture, he said no need.
[2022-07-02] MEDS ORDERED: furosemide 40mg/4ml inj IV ONE (07:35)
[2022-07-02] MEDS ORDERED: furosemide 10 MG/1 ML 10ml inj IV ONE (07:35)
[2022-07-02 07:58] LABS: BASOPHILS % (AUTO) 0.4 % (0-1); EOSINOPHILS # (AUTO) 0.1 X10'3 (0-0.9); EOSINOPHILS % (AUTO) 0.5 % (0-6); HEMATOCRIT 32.9 % (42.0-52.0); HEMOGLOBIN 10.3 g/dl (14.0-17.9); LYMPHOCYTES # (AUTO) 1.3 X10'3 (1.1-4.8); LYMPHOCYTES % (AUTO) 11.7 % (21-51); MEAN CORPUSCULAR HEMOGLOBIN 25.5 PG (27.0-31.0); MEAN CORPUSCULAR HGB CONC 31.4 g/dL (33.0-36.5); MEAN CORPUSCULAR VOLUME 81.3 FL (78-98); MEAN PLATELET VOLUME 8.5 FL (7.4-10.4); MONOCYTES # (AUTO) 0.9 X10'3 (0-0.9); MONOCYTES % (AUTO) 8.5 % (2-12); NEUTROPHILS # (AUTO) 8.6 X10'3 (1.8-7.7); NEUTROPHILS % (AUTO) 78.9 % (42-75); PLATELET COUNT 244 X10'3 (140-440); RED BLOOD COUNT 4.05 X10'6 (4.70-6.10); RED CELL DISTRIBUTION WIDTH 19.4 % (11.5-14.5); WHITE BLOOD COUNT 10.9 X10'3 (4.5-11.0)
[2022-07-02 08:19] LABS: ALANINE AMINOTRANSFERASE 55 U/L (12-78); ALBUMIN 3.6 G/DL (3.4-5.0); ALBUMIN/GLOBULIN RATIO 1.1 (1.1-1.5); ALKALINE PHOSPHATASE 80 IU/L (46-116); ANION GAP 10 (8-16); ASPARTATE AMINO TRANSFERASE 53 U/L (10-37); BILIRUBIN,TOTAL 1.9 MG/DL (0.1-1.0); BLOOD UREA NITROGEN 27 MG/DL (7-18); BUN/CREATININE RATIO 16.9 (5.4-32.0); CALCIUM 8.2 MG/DL (8.5-10.1); CHLORIDE 106 MMOL/L (99-107); GLUCOSE 229 MG/DL (70-104); POTASSIUM 4.4 MMOL/L (3.5-5.1); SODIUM 143 MMOL/L (135-145); TOTAL CARBON DIOXIDE 26.9 MMOL/L (24-32); TOTAL PROTEIN 6.9 G/DL (6.4-8.2); eGFR 45 ML/MIN
--- NOTE | 2022-07-02 08:44 | NUR ---
Dr. Real notified about patient currently at 6 lpm/nc as the O2 sat went low 85% and that pt heart rate sometimes will drop to 40's then back to normal rate. Lasix 80 mg IV was just given
[2022-07-02] MEDS ORDERED: albuterol 2.5 MG/3 ML nebule NEB ONE (08:50)
[2022-07-02] MEDS ORDERED: ipratropium/albuterol 3ml nebule NEB ONE (08:50)
[2022-07-02 11:04] LABS: CLARITY,URINE CLEAR (Clear); COLOR,URINE YELLOW (Yellow); GLUCOSE, URINE 500 mg/dl (Neg); KETONES,URINE NEGATIVE (Neg); LEUKOCYTE ESTERASE ,URINE NEGATIVE (Neg); NITRITES, URINE NEGATIVE (Neg); OCCULT BLOOD,URINE NEGATIVE (Neg); PH,URINE 5.5 (4.8-8.0); PROTEIN,URINE NEGATIVE (Neg); UROBILINOGEN,URINE 0.2 E.U/dL (0.2-1.0)
[2022-07-02 11:13] LABS: UA COLLECTION TYPE CLN CATCH MIDSTREAM
[2022-07-02 11:44] LABS: URINE AMPHETAMINE SCREEN NEGATIVE (Neg); URINE BARBITUATE SCREEN NEGATIVE (Neg); URINE BENZODIAZEPINES SCREEN NEGATIVE (Neg); URINE CANNABINOID SCREEN NEGATIVE (Neg); URINE COCAINE SCREEN NEGATIVE (Neg); URINE METHADONE SCREEN NEGATIVE (Neg); URINE OPIATE SCREEN NEGATIVE (Neg); URINE PHENCYCLIDINE SCREEN NEGATIVE (Neg)
--- NOTE | 2022-07-02 12:10 | NUR ---
Dr. Driver talked to patient with the at bedside about advanced directive. Addendum: 07/02/22 at 1213 by JERONIMO Pt wished to be DNR and was confirmed with patient
--- NOTE | 2022-07-02 14:16 | NUR ---
PATIENT IS ASKING FOR FOOD. NO DIET ORDER YET. PAGE TO DR. DAMIAN FOR DIET CLARIFICATION. Message: ER BED #1. VANESSA. PATIENT IS CONTINUALLY ASKING FOR FOOD. CAN WE HAVE A DIET ORDER FOR THE PATIENT? HE IS DIABETIC.
--- NOTE | 2022-07-02 14:43 | NUR ---
Paged Dr. Driver: ROXANA Hartley RN RE: Jonatan Angela. Patient kept calling for something to eat. Can I get a carb control diet?
[2022-07-02] MEDS ORDERED: FURO40TA4 PO (14:44)
[2022-07-02] MEDS ORDERED: MESSAGE TO PHARMACY PO ONE (14:45)
[2022-07-02] MEDS ORDERED: magnesium Cl slow-release 64mg tablet PO PRN (14:45)
[2022-07-02] MEDS ORDERED: acetaminophen 650mg rectal suppository RC PRN (14:45)
[2022-07-02] MEDS ORDERED: dextrose 50%-water 50ml dispensing syringe IV PRN ×2 (14:45)
[2022-07-02] MEDS ORDERED: morphine 2 MG/ML inj. syringe IV PRN ×2 (14:45)
[2022-07-02] MEDS ORDERED: ondansetron/PF 4mg/2ml inj IV PRN (14:45)
[2022-07-02] MEDS ORDERED: diphenhydrAMINE 25mg capsule PO PRN (14:45)
[2022-07-02] MEDS ORDERED: acetaminophen 325mg tablet PO PRN ×2 (14:45)
[2022-07-02] MEDS ORDERED: potassium Cl 20 mEq SR tablet PO PRN ×2 (14:45)
[2022-07-02] MEDS ORDERED: magnesium hydroxide 30ml (MOM) UD suspension PO PRN (14:45)
[2022-07-02] MEDS ORDERED: HYDROcodone/acetaminophen 5mg/325mg tablet PO PRN (14:45)
[2022-07-02] MEDS ORDERED: DEXTROSE 15 GM of carb/4 tabs (each vial/BOTTLE has 4 tablets) PO PRN ×2 (14:45)
[2022-07-02] MEDS ORDERED: potassium Cl 40MEQ/1/2NS 520ml 520 ML IV PRN (14:45)
[2022-07-02] MEDS ORDERED: glucagon, human recombinant 1mg kit SUBCUT PRN (14:45)
[2022-07-02] MEDS ORDERED: magnesium 4gm in 100ml NS 100 ML IV PRN (14:45)
[2022-07-02] MEDS ORDERED: bisacodyl 10mg suppository rectal RC PRN (14:45)
[2022-07-02] MEDS ORDERED: mag hydrox/Alum hydrox/simeth 30ml oral suspension PO PRN (14:45)
--- NOTE | 2022-07-02 15:16 | NUR ---
Paged Dr. Villa Hartley RN RE: Jonatan Angela. MRI called me said patient cannot fit in their MRI machine so it can't get done here.
[2022-07-02 15:29] LABS: HEMOGLOBIN A1C 6.8 % (4.5-6.2)
--- NOTE | 2022-07-02 15:54 | NUR ---
Paged Vascular for carotid IESHA order
--- NOTE | 2022-07-02 16:11 | NUR ---
Attempted to give report to PCU, the charge nurse said the nurse will call me back
--- NOTE | 2022-07-02 16:30 | NUR ---
Patient in room ED 1. I have received report from Paola MARSHALL from ER and had the opportunity to ask questions and assume patient care.
--- NOTE | 2022-07-02 17:00 | NUR ---
upon patient getting on unit he was working really hard to breath. Patient was brought up on 3.5l of O2 and stats were 82%. Turned O2 up to 10L and paged RT. Rt requesting another chest x ray, breathing tx. Paged MD and asked for these as well as a covid test. Patient lungs sound really bad, wheezing and wet. patient is also in Afib/aflutter. waiting on advised from
--- NOTE | 2022-07-02 17:27 | NUR ---
Patient admitted to PCU on 3.5l of oxygen ans stats are 82%. paged RT
[2022-07-02 18:00] VITALS: BP 169/88
--- NOTE | 2022-07-02 18:03 | NUR ---
Message: [id number]- Julio César,R- New admit and patient is at 10L of O2 and stats @90%. Can I pls have an orders for covid test, Breathing tx, chest xray? TY Heather 1030
[2022-07-02] MEDS: carVEDilol 12.5mg tablet PO SCH (19:20)
[2022-07-02] MEDS: insulin Lispro (HumaLOG) vial - multi-dose SQ SCH (19:23)
[2022-07-02] MEDS: cloNIDine 0.1 mg tablet PO SCH (19:24)
[2022-07-02] MEDS: gabapentin 300mg capsule PO SCH (19:25)
[2022-07-02] MEDS: docusate sod 100mg capsule PO SCH (19:26)
[2022-07-02] MEDS: HYDROcodone/acetaminophen 10/325mg tab PO PRN ×2 (19:32→23:53)
[2022-07-02] MEDS: furosemide 10 MG/1 ML 10ml inj IV SCH (19:33)
[2022-07-02] MEDS: K and/or MAG REPLACEMENT MC SCH (19:40)
[2022-07-02] MEDS: rivaroxaban 20mg tablet PO SCH (19:43)
[2022-07-02 20:00] VITALS: BP 128/76
[2022-07-02 20:01] VITALS: BP 154/78
[2022-07-02 20:02] VITALS: BP 135/65
[2022-07-02] MEDS: insulin glargine (Lantus) pen - multi-dose SQ SCH (20:46)
[2022-07-02] MEDS: amLODIPine 5mg tablet PO SCH (20:48)
[2022-07-02] MEDS: atorvastatin 20mg tablet PO SCH (20:49)
[2022-07-02] MEDS: lisinopril 20mg tablet PO SCH (20:50)
[2022-07-02] MEDS ORDERED: ipratropium/albuterol 3ml nebule NEB PRN (21:00)
[2022-07-02] MEDS ORDERED: methylPREDNISolone sod succ 125mg/2ml vial IV ONE (21:00)
[2022-07-02] MEDS: ipratropium/albuterol 3ml nebule NEB SCH (22:30)
[2022-07-02 22:50] VITALS: BP 134/64
[2022-07-03] MEDS: methylPREDNISolone sod succ/PF 40mg inj. IV SCH ×4 (02:23→20:58)
[2022-07-03] MEDS: ipratropium/albuterol 3ml nebule NEB SCH ×6 (02:53→23:27)
[2022-07-03 04:00] VITALS: BP 161/51
--- NOTE | 2022-07-03 06:30 | NUR ---
Problems reprioritized. Patient report given, questions answered & plan of care reviewed with Gabbi MARSHALL.
[2022-07-03 06:36] LABS: BASOPHILS % (AUTO) 0 % (0-1); EOSINOPHILS % (AUTO) 0 % (0-6); HEMATOCRIT 35.1 % (42.0-52.0); HEMOGLOBIN 11.2 g/dl (14.0-17.9); LYMPHOCYTES # (AUTO) 0.4 X10'3 (1.1-4.8); LYMPHOCYTES % (AUTO) 6.4 % (21-51); MEAN CORPUSCULAR HEMOGLOBIN 25.5 PG (27.0-31.0); MEAN CORPUSCULAR HGB CONC 31.9 g/dL (33.0-36.5); MEAN CORPUSCULAR VOLUME 79.8 FL (78-98); MEAN PLATELET VOLUME 8.3 FL (7.4-10.4); MONOCYTES # (AUTO) 0.1 X10'3 (0-0.9); NEUTROPHILS # (AUTO) 6.5 X10'3 (1.8-7.7); NEUTROPHILS % (AUTO) 92.6 % (42-75); PLATELET COUNT 237 X10'3 (140-440); RED BLOOD COUNT 4.39 X10'6 (4.70-6.10); RED CELL DISTRIBUTION WIDTH 19.4 % (11.5-14.5); WHITE BLOOD COUNT 7.1 X10'3 (4.5-11.0)
[2022-07-03 06:46] LABS: D-DIMER < 0.19 MG/L FEU (0-0.50)
[2022-07-03 07:08] LABS: ALANINE AMINOTRANSFERASE 41 U/L (12-78); ALBUMIN 3.7 G/DL (3.4-5.0); ALKALINE PHOSPHATASE 87 IU/L (46-116); ANION GAP 10 (8-16); ASPARTATE AMINO TRANSFERASE 21 U/L (10-37); BILIRUBIN,TOTAL 1.9 MG/DL (0.1-1.0); BLOOD UREA NITROGEN 21 MG/DL (7-18); BUN/CREATININE RATIO 18.3 (5.4-32.0); CALCIUM 8.7 MG/DL (8.5-10.1); CHLORIDE 104 MMOL/L (99-107); CHOL/HDL RATIO 3.7 (0.00-4.99); CHOLESTEROL 162 MG/DL (0-200); CREATININE 1.15 MG/DL (0.60-1.10); GLUCOSE 233 MG/DL (70-104); HDL CHOLESTEROL 44 MG/DL (35-60); LDL CHOLESTEROL 86 MG/DL (50-100); MAGNESIUM 1.8 MG/DL (1.5-2.4); PHOSPHORUS 3.7 MG/DL (2.3-4.5); POTASSIUM 4.2 MMOL/L (3.5-5.1); SODIUM 142 MMOL/L (135-145); TOTAL CARBON DIOXIDE 28.5 MMOL/L (24-32); TOTAL PROTEIN 7.5 G/DL (6.4-8.2); TRIGLYCERIDES 185 MG/DL (20-135); eGFR 66 ML/MIN
[2022-07-03] MEDS: K and/or MAG REPLACEMENT MC SCH ×2 (08:00→20:00)
[2022-07-03] MEDS: furosemide 10 MG/1 ML 10ml inj IV SCH ×2 (09:19→20:58)
[2022-07-03] MEDS: pantoprazole 40mg Tablet.DR PO SCH (09:23)
[2022-07-03] MEDS: HYDROchlorothiazide 25mg tablet PO SCH (09:24)
[2022-07-03] MEDS: docusate sod 100mg capsule PO SCH ×2 (09:24→20:00)
[2022-07-03] MEDS: HYDROcodone/acetaminophen 10/325mg tab PO PRN ×3 (09:24→19:46)
[2022-07-03] MEDS: cloNIDine 0.1 mg tablet PO SCH ×2 (09:24→21:02)
[2022-07-03] MEDS: gabapentin 300mg capsule PO SCH ×2 (09:25→21:02)
[2022-07-03] MEDS: carVEDilol 12.5mg tablet PO SCH ×2 (09:25→17:53)
[2022-07-03 09:29] VITALS: BP 156/79
[2022-07-03] MEDS: insulin Lispro (HumaLOG) vial - multi-dose SQ SCH ×2 (12:55→19:46)
[2022-07-03 14:45] VITALS: BP 139/73
--- NOTE | 2022-07-03 15:28 | NUR ---
DM Consult: Pt hx DM A1C 6.8% appropriate. Addendum: 07/03/22 at [address] Amended: Links added.
[2022-07-03] MEDS: rivaroxaban 20mg tablet PO SCH (17:53)
[2022-07-03 18:00] VITALS: BP 140/81
--- NOTE | 2022-07-03 18:29 | NUR ---
Problems reprioritized. Patient report given, questions answered & plan of care reviewed with Edis MARSHALL, [facility].
[2022-07-03] MEDS: amLODIPine 5mg tablet PO SCH (20:59)
[2022-07-03] MEDS: lisinopril 20mg tablet PO SCH (21:00)
[2022-07-03] MEDS: atorvastatin 20mg tablet PO SCH (21:01)
[2022-07-03] MEDS: insulin glargine (Lantus) pen - multi-dose SQ SCH (21:26)
[2022-07-03 22:00] VITALS: BP 129/72
[2022-07-04] MEDS: methylPREDNISolone sod succ/PF 40mg inj. IV SCH ×2 (02:27→08:01)
[2022-07-04 02:37] VITALS: BP 137/73
[2022-07-04] MEDS: ipratropium/albuterol 3ml nebule NEB SCH ×4 (02:59→15:45)
[2022-07-04] MEDS: HYDROcodone/acetaminophen 10/325mg tab PO PRN (03:46)
--- NOTE | 2022-07-04 06:07 | NUR ---
Problems reprioritized. Patient report given, questions answered & plan of care reviewed with Marcelina MARSHALL.
[2022-07-04 06:22] LABS: BASOPHILS % (AUTO) 0.1 % (0-1); EOSINOPHILS % (AUTO) 0 % (0-6); HEMATOCRIT 31.1 % (42.0-52.0); HEMOGLOBIN 10.1 g/dl (14.0-17.9); LYMPHOCYTES # (AUTO) 0.7 X10'3 (1.1-4.8); LYMPHOCYTES % (AUTO) 6.4 % (21-51); MEAN CORPUSCULAR HEMOGLOBIN 25.9 PG (27.0-31.0); MEAN CORPUSCULAR HGB CONC 32.5 g/dL (33.0-36.5); MEAN CORPUSCULAR VOLUME 79.7 FL (78-98); MEAN PLATELET VOLUME 8.3 FL (7.4-10.4); MONOCYTES # (AUTO) 0.3 X10'3 (0-0.9); MONOCYTES % (AUTO) 2.5 % (2-12); NEUTROPHILS # (AUTO) 9.7 X10'3 (1.8-7.7); PLATELET COUNT 252 X10'3 (140-440); RED BLOOD COUNT 3.91 X10'6 (4.70-6.10); RED CELL DISTRIBUTION WIDTH 19.1 % (11.5-14.5); WHITE BLOOD COUNT 10.7 X10'3 (4.5-11.0)
[2022-07-04 06:28] LABS: ALANINE AMINOTRANSFERASE 27 U/L (12-78); ALBUMIN 3.4 G/DL (3.4-5.0); ALKALINE PHOSPHATASE 70 IU/L (46-116); ANION GAP 9 (8-16); ASPARTATE AMINO TRANSFERASE 9 U/L (10-37); BILIRUBIN,TOTAL 1.4 MG/DL (0.1-1.0); BLOOD UREA NITROGEN 34 MG/DL (7-18); BUN/CREATININE RATIO 28.3 (5.4-32.0); CALCIUM 8.6 MG/DL (8.5-10.1); CHLORIDE 102 MMOL/L (99-107); GLUCOSE 299 MG/DL (70-104); MAGNESIUM 2.2 MG/DL (1.5-2.4); PHOSPHORUS 3.8 MG/DL (2.3-4.5); POTASSIUM 4.1 MMOL/L (3.5-5.1); SODIUM 141 MMOL/L (135-145); TOTAL CARBON DIOXIDE 30.2 MMOL/L (24-32); TOTAL PROTEIN 6.8 G/DL (6.4-8.2); eGFR 63 ML/MIN
[2022-07-04 07:22] LABS: ANISOCYTOSIS 2+; MICROCYTOSIS 1+; PLATELET ESTIMATE NORMAL
[2022-07-04 07:24] LABS: ELLIPTOCYTES FEW; POLYCHROMASIA 1+; TEAR DROP CELLS FEW
[2022-07-04] MEDS: docusate sod 100mg capsule PO SCH (07:59)
[2022-07-04] MEDS: gabapentin 300mg capsule PO SCH (07:59)
[2022-07-04] MEDS: K and/or MAG REPLACEMENT MC SCH (08:00)
[2022-07-04] MEDS: cloNIDine 0.1 mg tablet PO SCH (08:00)
[2022-07-04] MEDS: HYDROchlorothiazide 25mg tablet PO SCH (08:01)
[2022-07-04] MEDS: pantoprazole 40mg Tablet.DR PO SCH (08:01)
[2022-07-04] MEDS: carVEDilol 12.5mg tablet PO SCH (08:01)
[2022-07-04] MEDS: furosemide 10 MG/1 ML 10ml inj IV SCH (08:02)
[2022-07-04] MEDS: insulin Lispro (HumaLOG) vial - multi-dose SQ SCH (08:50)
[2022-07-04] MEDS ORDERED: POTA-206 PO (14:22)
[2022-07-04] MEDS ORDERED: ALBU6.7H14 INH (14:26)
[2022-07-04] MEDS ORDERED: BUDE10.22 INH (14:26)
--- NOTE | 2022-07-04 17:07 | NUR ---
Pt stable for discharge per Dr. Driver. All discharge instructions reviewed with patient and all questions answered. Pt verbalized understanding. New meds e-scripted to pharmacy. PIV discontinued cannula intact. Tele discontinued. All belongings collected and sent with patient. Pt walked downstairs and was picked up by family.
== END 2022-07-04 16:29 | disposition home or self-care (01) | DRG 140 ==
LOC: ER 06:45 → ED HOLD 14:49 → PCU 3S 16:54
PROVIDERS: ADMIT Family Medicine; ATTEND Family Medicine
PROC: 5A0935A Assistance with Respiratory Ventilation, Less than 24 Consecutive Hours, High Flow/Velocity Cannula (ICD-10-PCS; principal; 2022-07-02)
PROC: 5A0935A Assistance with Respiratory Ventilation, Less than 24 Consecutive Hours, High Flow/Velocity Cannula (ICD-10-PCS; 2022-07-03)
DX: J44.1 Chronic obstructive pulmonary disease with (acute) exacerbation (principal); J96.20 Acute and chronic respiratory failure, unspecified whether with hypoxia or hypercapnia; I50.33 Acute on chronic diastolic (congestive) heart failure; N17.9 Acute kidney failure, unspecified; I27.20 Pulmonary hypertension, unspecified; E66.2 Morbid (severe) obesity with alveolar hypoventilation; S09.90XA Unspecified injury of head, initial encounter; E86.0 Dehydration; I48.0 Paroxysmal atrial fibrillation; Z20.822 Contact with and (suspected) exposure to COVID-19; Z66 Do not resuscitate; I13.0 Hypertensive heart and chronic kidney disease with heart failure and stage 1 through stage 4 chronic kidney disease, or unspecified chronic kidney disease; I27.81 Cor pulmonale (chronic); E11.22 Type 2 diabetes mellitus with diabetic chronic kidney disease; F12.90 Cannabis use, unspecified, uncomplicated; W18.39XA Other fall on same level, initial encounter; E11.40 Type 2 diabetes mellitus with diabetic neuropathy, unspecified; E78.00 Pure hypercholesterolemia, unspecified; N18.30 Chronic kidney disease, stage 3 unspecified; K21.9 Gastro-esophageal reflux disease without esophagitis; S00.11XA Contusion of right eyelid and periocular area, initial encounter; R55 Syncope and collapse; Z79.01 Long term (current) use of anticoagulants; Z82.49 Family history of ischemic heart disease and other diseases of the circulatory system; Z56.0 Unemployment, unspecified; Z68.41 Body mass index [BMI] 40.0-44.9, adult; Z79.4 Long term (current) use of insulin; Z99.81 Dependence on supplemental oxygen; Y93.89 Activity, other specified; Y92.89 Other specified places as the place of occurrence of the external cause; Y99.8 Other external cause status; Z71.3 Dietary counseling and surveillance
CPT/HCPCS: 36415; 70450; 70486; 71045; 80053; 80061; 80305; 81003; 82948; 83036; 83735; 83880; 84100; 84145; 84484; 85008; 85025; 85379; 87502; 87503; 87635; 93005; 93880; 94640; 94664; 94760; 96374; 97161; 97530; 99285; A4615; A4620; G0378; J1815; J1940; J2920; J2930

== ENCOUNTER 2023-07-25 11:34 | Emergency (ER) | payer MEDICAID ==
[~2023-07-25] VITALS: Ht 188 cm; Wt 148.7 kg
[~2023-07-25 11:34] MED LIST changes: -ALBU18HF2 INH; +ALBU6.7H14 INH; -ALOG25TA2 PO; +BUDE10.22 INH; -CARV25TA2 PO; +CARV6.2553 PO; -CLON0.2T PO; -DAPA5TAB PO; -FURO-149 PO; +FURO40TA4 PO; -IBUP-1985 PO; +LACT1CAP74 PO; -LIRA0.6P2 SUBCUT; +METF-1203 PO; -METF-438 PO; +POTA-206 PO; +SEMA2PEN PO; +ZAR2.5T PO
[2023-07-25 11:38] VITALS: BP 158/75; PULSE 74; RESP 16; TEMP 98.6; O2SAT 97
[2023-07-25 12:32] LABS: BASOPHILS % (AUTO) 0.5 % (0-1); EOSINOPHILS # (AUTO) 0.2 X10'3 (0-0.9); EOSINOPHILS % (AUTO) 2.7 % (0-6); HEMATOCRIT 35.4 % (42.0-52.0); HEMOGLOBIN 11.5 g/dl (14.0-17.9); LYMPHOCYTES # (AUTO) 1.3 X10'3 (1.1-4.8); LYMPHOCYTES % (AUTO) 19.4 % (21-51); MEAN CORPUSCULAR HEMOGLOBIN 27.8 PG (27.0-31.0); MEAN CORPUSCULAR HGB CONC 32.6 g/dL (33.0-36.5); MEAN CORPUSCULAR VOLUME 85.4 FL (78-98); MEAN PLATELET VOLUME 8.7 FL (7.4-10.4); MONOCYTES # (AUTO) 0.5 X10'3 (0-0.9); MONOCYTES % (AUTO) 7.6 % (2-12); NEUTROPHILS # (AUTO) 4.8 X10'3 (1.8-7.7); NEUTROPHILS % (AUTO) 69.8 % (42-75); PLATELET COUNT 213 X10'3 (140-440); RED BLOOD COUNT 4.14 X10'6 (4.70-6.10); RED CELL DISTRIBUTION WIDTH 18.3 % (11.5-14.5); WHITE BLOOD COUNT 6.9 X10'3 (4.5-11.0)
[2023-07-25 12:40] LABS: ALANINE AMINOTRANSFERASE 31 U/L (12-78); ALBUMIN 3.5 G/DL (3.4-5.0); ALKALINE PHOSPHATASE 67 IU/L (46-116); ANION GAP 12 (8-16); ASPARTATE AMINO TRANSFERASE 22 U/L (10-37); BILIRUBIN,TOTAL 0.9 MG/DL (0.1-1.0); BLOOD UREA NITROGEN 29 MG/DL (7-18); CALCIUM 8.4 MG/DL (8.5-10.1); CHLORIDE 100 MMOL/L (99-107); CREATININE 1.71 MG/DL (0.60-1.10); GLUCOSE 396 MG/DL (70-104); SODIUM 139 MMOL/L (135-145); TOTAL CARBON DIOXIDE 27.5 MMOL/L (24-32); eCRCL 55 ML/MIN; eGFR 41 ML/MIN
[2023-07-25 12:46] LABS: BILIRUBIN,DIRECT 0.2 MG/DL (0-0.3); PRO BRAIN NATRIURETIC PEPTIDE 449 PG/ML (0-125)
== END 2023-07-25 16:52 | disposition home or self-care (01) ==
LOC: ER 11:35
DX: Z71.1 Person with feared health complaint in whom no diagnosis is made (principal); I13.0 Hypertensive heart and chronic kidney disease with heart failure and stage 1 through stage 4 chronic kidney disease, or unspecified chronic kidney disease; I50.9 Heart failure, unspecified; E11.22 Type 2 diabetes mellitus with diabetic chronic kidney disease; E78.00 Pure hypercholesterolemia, unspecified; F12.90 Cannabis use, unspecified, uncomplicated; Z79.899 Other long term (current) drug therapy; Z79.84 Long term (current) use of oral hypoglycemic drugs
CPT/HCPCS: 36415; 71045; 80048; 80076; 83880; 84484; 85025; 93005; 99285

== ENCOUNTER 2025-01-08 08:51 | Inpatient (IN) | payer MEDICAID ==
[~2025-01-08] VITALS: Ht 188 cm; Wt 120.0 kg
[~2025-01-08 08:51] MED LIST changes: -LISI40TA13 PO; +LISI40TA20 PO
--- NOTE | 2025-01-08 09:08 | ELECTROCARDIOGRAPH REPORT ---
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
--- NOTE | 2025-01-08 09:16 | Physician Documentation ---
History of Present Illness ~ General Chief Complaint: Multiple Medical Complaints Stated Complaint: NUMBNESS Time Seen by MD: 09:01 Primary Medical Doctor: [facility] Source: patient Mode of Arrival: POV Exam Limitations: no limitations History of Present Illness Initial Comments Patient with a history of diabetes and obstructive sleep apnea along with hypertension in having weakness over the past few days and having his knees gave out and falling. Does not take blood thinners and denies any injury. He has had chest pain for a few days it is a 7 or an 8. Does not take aspirin. States his sugar has been reading high for the past couple of days. Takes insulin and pills for this. Medication Reconciliation Allergies: Coded Allergies: No Known Allergies (Unverified , 07/02/22) Scheduled Albuterol Sulfate (Proventil Hfa), 2 PUFFS INH Q4H Amlodipine Besylate (Amlodipine Besylate), 1 TABLET PO HS, (Reported) Atorvastatin Calcium (Atorvastatin Calcium), 1 TABLET PO HS, (Reported) Budesonide/Formoterol Fumarate (Symbicort 80-4.5 Mcg Inhaler), 2 PUFFS INH Q12H Carvedilol (Carvedilol), 1 TAB PO BID, (Reported) Furosemide (Furosemide), 1 TAB PO BID, (Reported) Gabapentin (Neurontin), 2 CAP PO BID, (Reported) Hydrochlorothiazide (Hydrochlorothiazide), 1 TAB PO DAILY, (Reported) Insulin Glargine,Hum.rec.anlog (Basaglar Kwikpen U-100), 65 UNITS SUBCUT BID, (Reported) Lactobacillus Rhamnosus GG (Culturelle), 1 CAP PO DAILY Lisinopril* (Lisinopril*), 1 TAB PO HS, (Reported) Metformin HCl (Metformin HCl), 1 TAB PO BID, (Reported) Metolazone (ZAROXOLYN tablet), 1 TAB PO DAILY, (Reported) Pantoprazole Sodium (Protonix), 2 TAB PO DAILY, (Reported) Potassium Chloride (K-Dur), 1 TAB PO DAILY Rivaroxaban (Xarelto), 1 TAB PO QDD, (Reported) Semaglutide (Ozempic), 2 MG PO Q7D, (Reported) Past Medical History Past Medical History: Atrial Fibrillation, Congestive Heart Failure, High Cholesterol, Hypertension, *PULMONARY*, Asthma, Sleep Apnea, Chronic Kidney Disease, Diabetes Past Surgical History: no surgical history, other Patient History: FH: CHF (congestive heart failure) FATHER Alcohol Use: None Drug Use: marijuana Lives with: Family Lives In: Home Occupation: unemployed Review of Systems All Other Systems at this time: Reviewed and Negative Physical Exam Physical Exam Vital Signs: Temperature: 98.1, Source: Temporal, Heart Rate: 82, Respiratory Rate: 17, BP: 113/59, Pulse Oximetry: 100, Weight: 120.000 Oxygen Flow Rate: 3.0 General Appearance: alert, no apparent distress Head: normal inspection Face: normal inspection Pupils/EOM/Fundus: PERRLA Neck: non-tender, full range of motion Respiratory: lungs clear, normal breath sounds Chest: no accessory muscle use Cardiovascular: no edema, no murmur, irregularly irregular Gastrointestinal: normal palpation, non-tender Extremities: normal range of motion, non-tender Neurologic: oriented x4 Motor / Sensory: no motor deficit, no sensory deficit Psychiatric: normal mood/affect Skin: normal color, warm/dry Progress Results/Orders Results/Orders Orders - JENNIFER PURDY MD Chest,Single View (01/08/25 09:01) Monitor (01/08/25 09:01) Saline Lock (01/08/25 09:01) Oxygen (01/08/25 09:01) Hs Troponin I W Calculations (01/08/25 12:01) Page Hospitalist (01/08/25 ) Completed Orders - JENNIFER PURDY MD Chest,Single View (01/08/25 09:01) Cbc/Diff (01/08/25 09:01) BMP (01/08/25 09:01) PBNP (01/08/25 09:01) Electrocardiogram (01/08/25 09:01) Hs Troponin I W Calculations (01/08/25 09:01) Hs Troponin I W Calculations (01/08/25 11:01) Normal Saline 1000ml (0.9% Sodium Chlori (01/08/25 09:15) Aspirin 81mg Chew Tablet (Aspirin 81mg C (01/08/25 09:20) Normal Saline 1000ml (0.9% Sodium Chlori (01/08/25 10:15) Insulin Regular, Human (Humulin R 10 Uni (01/08/25 10:40) Ua W/Microscopic, Cult If Ind (01/08/25 10:30) Medications Received in ER Medications (Trade) Dose Ordered Sig/Branden Route PRN Reason Start Time Stop Time Status Last Admin Dose Admin Sodium Chloride 1,000 ml @ 1,000 mls/hr ONCE ONCE IV 01/08/25 09:15 01/08/25 10:14 DC 01/08/25 09:30 1,000 MLS/HR (aspirin 81MG chew tablet) 324 mg ONCE ONCE PO 01/08/25 09:20 01/08/25 09:21 DC 01/08/25 09:32 324 MG Sodium Chloride 1,000 ml @ 1,000 mls/hr ONCE ONCE IV 01/08/25 10:15 01/08/25 11:14 DC 01/08/25 10:18 1,000 MLS/HR (HumuLIN R 10 units per 0.1 ML syringe) 16 units ONCE ONCE IV 01/08/25 10:40 01/08/25 10:41 DC 01/08/25 10:52 16 UNITS Insulin Human Regular 100 ml @ 5 mls/hr Q20H IV 01/08/25 11:25 01/08/25 11:54 5 MLS/HR Sodium Chloride 1,000 ml @ 100 mls/hr Q10H IV 01/08/25 11:30 01/08/25 11:54 100 MLS/HR Vital Signs 01/08/25 01/08/25 01/08/25 01/08/25 08:54 09:10 10:02 11:00 Temp 98.1 98.1 Pulse 82 66 89 Resp 17 16 12 B/P (MAP) 113/59 102/70 (81) 136/69 (91) Pulse Ox 100 97 97 O2 Flow Rate 3.0 3.0 3.0 Laboratory Tests Test 01/08/25 08:58 01/08/25 09:25 01/08/25 10:30 01/08/25 10:52 Glucometer > 600 *H White Blood Count 10.0 Red Blood Count 5.38 Hemoglobin 14.6 Hematocrit 42.2 Mean Corpuscular Volume 78.5 Mean Corpuscular Hemoglobin 27.1 Mean Corpuscular Hemoglobin Concent 34.5 Red Cell Distribution Width 17.2 H Platelet Count 261 Mean Platelet Volume 8.9 Neutrophils (%) (Auto) 72.2 Lymphocytes (%) (Auto) 20.2 L Monocytes (%) (Auto) 6.4 Eosinophils (%) (Auto) 0.7 Basophils (%) (Auto) 0.5 Neutrophils # (Auto) 7.2 Lymphocytes # (Auto) 2.0 Monocytes # (Auto) 0.6 Eosinophils # (Auto) 0.1 Basophils # (Auto) 0.1 CBC Comment Sodium Level 117 *L Potassium Level 3.9 Chloride Level 73 L Carbon Dioxide Level 33.7 H Anion Gap 10 Blood Urea Nitrogen 48 H Creatinine 2.31 H Estimated GFR/1.73 m2 29 BUN/Creatinine Ratio 20.8 H Glucose Level 842 *H Osmolality 309 H Calcium Level 9.1 Troponin I High Sensitivity 31 30 Pro-B-Type Natriuretic Peptide 222 H Albumin 4.0 Chemistry Comments Urine Specimen Description Urinal Urine Color Straw Urine Clarity Clear Urine pH 6.0 Urine Specific [place] <=1.005 Urine Protein Negative Urine Glucose (UA) >=1000 H Urine Ketones Negative Urine Occult Blood Negative Urine Nitrite Negative Urine Bilirubin Negative Urine Urobilinogen 1.0 Urine Leukocyte Esterase Negative Urine RBC 0-2 Urine WBC 0-4 Urine Squamous Epithelial Cells Few Urine Amorphous Urates 1+ Urine Bacteria None seen Urine Culture Indicated Not ind Volume Urine Centrifuged 10 ml Urine Comment Troponin I High Sens Percent Delta 3 Troponin I Hi Sens Absolute Change -1 Medical Decision Making Differential Diagnosis Patient in with uncontrolled diabetes. Sugars in the 800s. Bicarbonate is high but gap is normal and no ketones in the urine. Initial troponin is negative. Patient is resting comfortably and on his baseline 3 L of oxygen. Initially gave patient 16 units of insulin and 2 L of normal saline. Sodium is low at 117 due to the elevated glucose. Corrected sodium is 129. Discussed with the hospitalist team who will admit for further treatment. Patient is stable on admission. Departure Disposition: ADMITTED INPATIENT Admitted to Inpatient Unit: to hospitalist Admission Level of Care: Med/Surg with Tele Impression: Primary Impression: Uncontrolled diabetes mellitus Qualified Codes: E11.65 - Type 2 diabetes mellitus with hyperglycemia Additional Impression: Chest pain Condition: Stable Referrals: NO PRIMARY CARE PROVIDER (PCP) Signature Scribe Signature: No scribe used Attestation: No scribe used JENNIFER PURDY MD Jan 08, 2025 09:16
[2025-01-08] MEDS: normal saline 1000ml 1,000 ML IV ONE ×2 (09:30→10:18)
--- NOTE | 2025-01-08 09:33 | RADIOLOGY REPORT ---
CHEST RADIOGRAPH Indication: CP Technique: Single frontal view of the chest was obtained COMPARISON: DI CHEST,SINGLE VIEW on DOS: 07/25/23, DI CHEST,SINGLE VIEW on DOS: 02/05/23, DI CHEST,SING LE VIEW on DOS: 02/04/23, DI CHEST,SINGLE VIEW on DOS: 02/03/23, CHEST,SINGLE VIEW on DOS: 07/02/22 FINDINGS: Lines and Tubes: None Lungs: Clear Pleura: No effusion. No pneumothorax. Cardiomediastinal contours: Unremarkable Bones: Unremarkable IMPRESSION: No acute disease.
[2025-01-08 09:41] LABS: MEAN PLATELET VOLUME 8.9 FL (7.4-10.4); RED CELL DISTRIBUTION WIDTH 17.2 % (11.5-14.5)
[2025-01-08 10:16] LABS: CREATININE 2.31 MG/DL (0.60-1.10); TOTAL CARBON DIOXIDE 33.7 MMOL/L (24-32); eCRCL 41 ML/MIN; eGFR 29 ML/MIN
[2025-01-08] MEDS ORDERED: insulin regular, human 10 units/0.1 ml syringe IV ONE (10:45)
[2025-01-08 10:51] LABS: LEUKOCYTE ESTERASE ,URINE NEGATIVE (Neg); NITRITES, URINE NEGATIVE (Neg); OCCULT BLOOD,URINE NEGATIVE (Neg)
[2025-01-08 10:51] LABS: PRO BRAIN NATRIURETIC PEPTIDE 222 PG/ML (0-125)
[2025-01-08] MEDS: insulin regular, human 10 units/0.1 ml syringe IV ONE (10:52)
[2025-01-08 10:59] LABS: UA COLLECTION TYPE URINAL
[2025-01-08 11:00] LABS: AMORPHOUS URATES 1+; SQUAMOUS EPITHELIAL CELL,UR FEW /LPF (FEW)
[2025-01-08] MEDS ORDERED: dextrose 50%-water 50ml dispensing syringe IV PRN ×3 (11:25→17:35)
[2025-01-08] MEDS ORDERED: HYDROcodone/acetaminophen 5mg/325mg tablet PO PRN (11:30)
[2025-01-08] MEDS ORDERED: magnesium sulf-water 2g/50mL 50 ML IV PRN (11:30)
[2025-01-08] MEDS ORDERED: mag hydrox/Alum hydrox/simeth 30ml oral suspension PO PRN (11:30)
[2025-01-08] MEDS ORDERED: magnesium hydroxide 30ml (MOM) UD suspension PO PRN (11:30)
[2025-01-08] MEDS ORDERED: magnesium sulf-water 4G/100mL 100 ML IV PRN (11:30)
[2025-01-08] MEDS ORDERED: ondansetron/PF 4mg/2ml inj IV PRN (11:30)
[2025-01-08] MEDS: PERFLUTREN PROTEIN-A MICROSPHR (Optison) 0.22 MG/ML 3ML VIAL IV ONE (11:54)
[2025-01-08] MEDS: normal saline 1000ml 1,000 ML IV SCH (11:54)
[2025-01-08] MEDS: Insulin Reg/NS 100units/100mL 100 ML IV SCH ×2 (11:54→16:18)
[2025-01-08] MEDS: INSULIN LISPRO 100 UNIT/ML INSULN.PEN MULTI-DOSE SQ SCH ×3 (12:57→21:08)
[2025-01-08] MEDS ORDERED: LIDO1ADH58 (14:31)
[2025-01-08] MEDS ORDERED: DAPA10TA PO (14:31)
[2025-01-08] MEDS ORDERED: ATOR-2 PO (14:31)
[2025-01-08] MEDS ORDERED: ALLO300T8 PO (14:31)
[2025-01-08] MEDS ORDERED: SPIR1TAB4 PO (14:31)
[2025-01-08] MEDS ORDERED: AMIT50TA15 PO (14:31)
[2025-01-08] MEDS ORDERED: FENO54TA PO (14:41)
[2025-01-08] MEDS ORDERED: FENO43CA8 PO (14:41)
[2025-01-08 15:26] LABS: CREATININE 1.74 MG/DL (0.60-1.10); TOTAL CARBON DIOXIDE 34.9 MMOL/L (24-32); eCRCL 54 ML/MIN; eGFR 41 ML/MIN
[2025-01-08] MEDS ORDERED: Potassium Cl inj 20 MEQ in normal saline 1000ml 990 ML IV SCH (15:55)
[2025-01-08 16:00] VITALS: BP 108/79; PULSE 86; RESP 18; TEMP 98.5; O2SAT 99
[2025-01-08] MEDS: potassium Cl 40MEQ/1/2NS 520ml 520 ML IV PRN (16:16)
[2025-01-08] MEDS ORDERED: DEXTROSE 15 GM of carb/4 tabs (each vial/BOTTLE has 4 tablets) PO PRN ×2 (17:35)
[2025-01-08] MEDS ORDERED: glucagon, human recombinant 1mg kit SUBCUT PRN (17:35)
--- NOTE | 2025-01-08 17:49 | RADIOLOGY REPORT ---
EXAM: CT CT UPPER EXTREM(SHOULDER/ARM) INDICATION: recent fall with significant decreased rom and pain right shoulder TECHNIQUE: Axial images of right upper extremity have been obtained along with coronal and sagittal r eformatted images. All CT scans at this facility use dose modulation, iterative reconstruction, and/o r weight based dosing when appropriate to reduce radiation dose to as low as reasonably achievable. COMPARISON: None FINDINGS: BONES: No CT evidence of an acute fracture or aggressive osseous lesion. Minimal lateral acromial nasir nsloping. Correlate for subacromial impingement MUSCLES: No abnormal attenuation. JOINT SPACES: No joint effusion. Minimal asymmetric joint space loss of the glenohumeral joint compat ible with degenerative change. TENDONS/LIGAMENTS: Intact. OTHER: None. IMPRESSION: 1. No CT evidence of an acute fracture.
--- NOTE | 2025-01-08 17:54 | HISTORY AND PHYSICAL ---
History & Physical Providers to CC ~ History of Present Illness Reason for Admit\Complaint: Nonketotic hyperosmolar syndrome/ Gen weakness with multiple falls History of Present Illness This is a 57-year-old male who presents to ED with chief complaint of generalized weakness informs me that he has fallen in his knees just gave out. The patient did hit his right shoulder approximately one-week ago in his having difficulty moving his right shoulder. He is a type 2 diabetic and is noncompliant he has been checking his sugars at home and the meter has been reading high for several weeks. The patient has noticed increased urination as well. On arrival to the ED the patient is blood glucose was 842 with a serum osmolality in his serum sodium 117 however his corrected serum sodium was 129. The patient was given 15 units of IV insulin which brought his glucose down to the 500s I started the patient on an insulin drip when I evaluated the patient is blood glucose was in the high 400s the patient is started on 5 units of insulin however his blood glucose dropped to 344 and I decreased the insulin to drip to 3 units followed by 2 units and his blood glucose came back now at 2:46 a.m. stopping insulin drip and placing the patient hyper and hypoglycemic protocol patient had a mild metabolic acidosis with a serum bicarb of 33.7 however his anion gap was 10 and that is the patient is does not have DKA but isn't hyperosmolar nonketotic syndrome. Allergies: Coded Allergies: No Known Allergies (Unverified , 07/02/22) Home Medications Home Medications Active Reported Fenofibrate 54 Mg Tablet 1 Tab PO DAILY 30 Days Spironolactone-Hctz 25-25 Tab (Spironolact/Hydrochlorothiazid) 25 Mg-25 Mg Tablet 1 Tab PO DAILY 30 Days Elavil* (Amitriptyline HCl) 50 Mg Tablet 1 Tab PO HS 30 Days Ztlido (Lidocaine) 1.8 % Adh..patch Farxiga (Dapagliflozin Propanediol) 10 Mg Tablet 1 Tab PO DAILY 30 Days Atorvastatin Calcium 80 Mg Tablet 1 Tab PO DAILY Allopurinol 300 Mg Tablet 300 Mg PO DAILY Metformin HCl 500 Mg Tablet 1 Tab PO BID Carvedilol 6.25 Mg Tablet 1 Tab PO BID ZAROXOLYN tablet (Metolazone) 2.5 Mg Tablet 1 Tab PO DAILY Furosemide 40 Mg Tablet 1 Tab PO BID Neurontin (Gabapentin) 300 Mg Capsule 2 Cap PO BID 30 Days Basaglar Kwikpen U-100 (Insulin Glargine,Hum.rec.anlog) 100 Unit/1 Ml Insuln.pen 65 Units SUBCUT BID Xarelto (Rivaroxaban) 20 Mg Tablet 1 Tab PO QDD Protonix (Pantoprazole Sodium) 20 Mg Tablet.dr 2 Tab PO DAILY Past Medical History Past Medical History HFpEF Atrial fibrillation Type 2 diabetes mellitus Hypertension Hypoventilation syndrome Respiratory failure requiring intubation Past Surgical History Surgical History Comment No prior surgeries Family History Family History: FH: CHF (congestive heart failure) FATHER Past Social History Social History Comment Does not smoke cigarettes drink alcohol. Smokes marijuana however does not use illicit drugs. Full code status ROS ROS Except for positives in the HPI the rest of the 14 point review systems is negative Exam Vitals: Vital Signs Date Time Temp Pulse Resp B/P (MAP) Pulse Ox O2 Delivery O2 Flow Rate FiO2 01/08/25 16:00 18 99 Nasal Cannula 3.0 01/08/25 15:14 88 01/08/25 14:00 118/65 (82) 01/08/25 10:02 98.1 General: Gen. No acute distress mildly somnolent however oriented 4 Lungs clear to ascultation bilaterally, no wheezes rales or rhonchi appreciated Heart normal sinus rhythm no murmurs rubs or clicks noted Abdomen soft nontender bowel sounds are normoactive Lower extremities no clubbing cyanosis, nor edema appreciated bilaterally Muscle skeletal abduction 80 degrees, internal rotation of 40, external rotation 60 Diagnostic Data Last Recorded Lab Results: 01/08/25 0925 01/08/25 1500 Advance Care Planning Advanced Care plannin - 30 Minutes Problems: (1) Uncontrolled diabetes mellitus Status: Acute Additional Plan # nonketotic hyperosmolar syndrome # severe noncompliance with diabetic regimen # severely uncontrolled type 2 diabetes mellitus Insulin drip has been discontinued as the patient's blood glucose now is in the 200s on the hyper and hypoglycemic protocol # DESTINY- likely secondary to vasomotor nephropathy Continue IV fluids Monitor daily CMP # right shoulder strain CT scan is is negative for fracture or dislocation PT # hypokalemia On potassium replacement protocol # history of HFpEF Current echocardiogram demonstrates mild concentric hypertrophy with a estimated LVEF of 70% # permanent atrial fibrillation Continue carvedilol Continue Xarelto for DVT and stroke prophylaxis. # DVT prophylaxis SCDs Xarelto I spent a total of 17 minutes on reviewing various resuscitative measures/ ACP with the patient at the time of admission. The patient has decided on a full code status. 50 minutes of critical care time was spent on patient care on 01/08/2025 Date of Service: Jan 08, 2025 Billing Provider: HOLLY HESS DO Common Visit Codes: [id number] CARE 30-74 MIN Problem Qualifiers (1) Uncontrolled diabetes mellitus: Diabetes mellitus type: type 2 Glycemic state: with hyperglycemia Qualified Codes: E11.65 - Type 2 diabetes mellitus with hyperglycemia HOLLY HESS DO Jan 08, 2025 17:54
[2025-01-08 18:00] VITALS: BP 132/72; PULSE 97; RESP 18; TEMP 97.9; O2SAT 99
[2025-01-08] MEDS: carvedilol 6.25mg tablet PO SCH (19:33)
[2025-01-08] MEDS: docusate sod 100mg capsule PO SCH (19:33)
[2025-01-08] MEDS: K and/or MAG REPLACEMENT MC SCH (19:37)
[2025-01-08] MEDS ORDERED: enoxaparin 30mg/0.3ml syringe SQ SCH (20:00)
[2025-01-08] MEDS: potassium Cl 20mEq in NS 1,000 ML IV SCH (21:06)
[2025-01-08] MEDS: insulin glargine (Lantus) pen - multi-dose SQ SCH (21:09)
[2025-01-08 21:36] VITALS: O2SAT 99
[2025-01-08 22:00] VITALS: BP 127/69; PULSE 90; RESP 24; TEMP 96.7; O2SAT 100
--- NOTE | 2025-01-08 23:35 | CARDIOLOGY REPORT ---
APPROVED REPORT EXAM: Comprehensive 2D, Doppler, and color-flow Echocardiogram. Patient Location: ED9 Blood Pressure: 136/69 mmHg Heart Rate: 86-95 bpm Rhythm: Atrial Fibrillation Indications CHF Diabetes Hypertension AFIB Potato Loader is yAden Dougherty MD. Previous echo 02/04/23 [facility] 65-70% ; RVSP 45 ; tr TR MR 2D Dimensions LA Diam5.5 cm IVSd 1.3 (0.7-1.1cm) LVDd 4.2 cm PWd 1.3 (0.7-1.1cm) IVSs 1.5 (0.8-1.2cm) LVDs 2.7 (2.5-4.0cm) Aortic Root(2D) 3.4 cm PWs 1.9 (0.8-1.2cm) LVOT Diameter 2.40 (1.8-2.4cm) LVEF(%) 66.8 (>50%) Ao Asc Diam.3.14 cmIVC 16.28 mm FS (%) 36.6 % SV 52.1 ml CO 4.8 L/min M-Mode Dimensions MV EPSS 0.7 (<0.5cm) Aortic Valve AoV Peak Elijah. 174.6 cm/s AoV VTI 28.9 cm AO Peak GR. 12.2 mmHg AO Mean GR. 7 mmHg LVOT VTI 15.67 cm LVOT Peak Elijah. 102.3 cm/s RUDY(VTI)/BSA 2.46 cm2/m2 RUDY (VTI) 2.46 cm2 Mitral Valve MV E Velocity 83.6 cm/s MV DECEL TIME 216 ms Tricuspid Valve RAP ESTIMATE 10 mmHg LEFT VENTRICLE Normal LV size and function. Mild concentric hypertrophy. LVEF is 70%. RIGHT VENTRICLE RV appears mildly dilated with normal contractility. ATRIA Left atrium is moderately dilated. AORTIC VALVE Trileaflet AV appears sclerotic without stenosis. No insufficiency. MITRAL VALVE MV is thickened with mild annular thickening and no stenosis. Trace mitral regurgitation. TRICUSPID VALVE The tricuspid valve is normal in structure. Trace tricuspid regurgitation. PULMONIC VALVE The pulmonary valve is normal in structure. Trace pulmonic regurgitation. GREAT VESSELS The aortic root is normal in size. The ascending aorta is normal in size. The IVC is normal in size a nd collapses >50% with inspiration. PERICARDIUM There is no pericardial effusion. Conclusion Normal LV size and function. Mild concentric hypertrophy. LVEF is 70%. RV appears mildly dilated with normal contractility. Left atrium is moderately dilated. Trileaflet AV appears sclerotic without stenosis. No insufficiency. MV is thickened with mild annular thickening and no stenosis. Trace mitral regurgitation. The tricuspid valve is normal in structure. Trace tricuspid regurgitation. The pulmonary valve is normal in structure. Trace pulmonic regurgitation. There is no pericardial effusion.
[2025-01-09] VITALS (11 sets, daily range): BP systolic 86–137; BP diastolic 54–73; PULSE 69–91; RESP 11–20; TEMP 97.3–98.8; O2SAT 94–100
[2025-01-09 06:22] LABS: MEAN PLATELET VOLUME 8.3 FL (7.4-10.4); RED CELL DISTRIBUTION WIDTH 17.3 % (11.5-14.5)
[2025-01-09 06:43] LABS: CREATININE 1.35 MG/DL (0.60-1.10); TOTAL CARBON DIOXIDE 34.4 MMOL/L (24-32); eCRCL 69 ML/MIN; eGFR 54 ML/MIN
[2025-01-09] MEDS ORDERED: albuterol 2.5 MG/3 ML nebule NEB PRN (09:40)
--- NOTE | 2025-01-09 09:45 | PROGRESS NOTE ---
Daily Progress Note Providers to CC ~ Antibiotic Timeout Antibiotic Ordered?: No Subjective The patient is wanting to go home however informed him that his serum potassium is 2.6 and that we are dying in his insulin. The patient is requesting bigger portions which I did inform him he could have more to eat. The patient's blood sugars are improving and are in the 100s to 200s. Objective Vital Signs Date Time Temp Pulse Resp B/P (MAP) Pulse Ox O2 Delivery O2 Flow Rate FiO2 01/09/25 07:52 17 99 Nasal Cannula 3.0 01/09/25 06:30 79 01/09/25 06:00 97.9 118/69 (85) 01/08/25 21:36 32 Result Diagram: 01/09/25 0538 01/09/2538 Gen. No acute distress alert and oriented 4 Lungs clear to ascultation bilaterally, no wheezes rales or rhonchi appreciated Heart normal sinus rhythm no murmurs rubs or clicks noted Abdomen soft nontender bowel sounds are normoactive Lower extremities no clubbing cyanosis, nor edema appreciated bilaterally Muscle skeletal abduction 80 degrees, internal rotation of 40, external rotation 60 Problem\Assessment\Plan Problems/Diagnosis: (1) Uncontrolled diabetes mellitus # nonketotic hyperosmolar syndrome # severe noncompliance with diabetic regimen # severely uncontrolled type 2 diabetes mellitus Insulin drip has been discontinued as the patient's blood glucose now is in the 200s on the hyper and hypoglycemic protocol 01/09 increase Lantus to 28 units HS and postprandial insulin to 10 units continue high dose sliding scale # DESTINY- likely secondary to vasomotor nephropathy Continue IV fluids Monitor daily CMP Continues to improve # right shoulder strain CT scan is is negative for fracture or dislocation PT # hypokalemia On potassium replacement protocol # history of HFpEF Current echocardiogram demonstrates mild concentric hypertrophy with a estimated LVEF of 70% # permanent atrial fibrillation Continue carvedilol Continue Xarelto for DVT and stroke prophylaxis. # COPD with chronic respiratory failure on 3 L of oxygen at baseline PRN DuoNeb and PRN albuterol nebs # DVT prophylaxis SCDs Xarelto Date of Service: Jan 09, 2025 Billing Provider: HOLLY HESS DO Common Visit Codes: [id number] INP/OBS CARE(HIGH) Problem Qualifiers (1) Uncontrolled diabetes mellitus: Qualified Codes: E11.65 - Type 2 diabetes mellitus with hyperglycemia HOLLY HESS DO Jan 09, 2025 09:45
[2025-01-09] MEDS: ipratropium/albuterol 3ml nebule NEB SCH (11:45)
[2025-01-09] MEDS: INSULIN LISPRO 100 UNIT/ML INSULN.PEN MULTI-DOSE SQ SCH (13:36)
[2025-01-09] MEDS: potassium Cl 20 mEq SR tablet PO PRN (15:33)
[2025-01-09] MEDS ORDERED: INSULIN LISPRO 100 UNIT/ML INSULN.PEN MULTI-DOSE SQ ONE (19:30)
[2025-01-09] MEDS: INSULIN LISPRO 100 UNIT/ML INSULN.PEN MULTI-DOSE SQ ONE (19:46)
[2025-01-09] MEDS ORDERED: insulin glargine (Lantus) pen - multi-dose SQ SCH (21:00)
[2025-01-09] MEDS: insulin glargine (Lantus) pen - multi-dose SQ SCH (22:06)
[2025-01-10 02:00] VITALS: BP 148/75; PULSE 81; RESP 18; TEMP 97.2; O2SAT 98
[2025-01-10] MEDS: HYDROcodone/acetaminophen 10/325mg tab PO PRN (02:07)
[2025-01-10 06:12] LABS: MEAN PLATELET VOLUME 8.2 FL (7.4-10.4); RED CELL DISTRIBUTION WIDTH 16.7 % (11.5-14.5)
[2025-01-10 06:46] LABS: CREATININE 1.06 MG/DL (0.60-1.10); TOTAL CARBON DIOXIDE 28.2 MMOL/L (24-32); eCRCL 88 ML/MIN; eGFR 72 ML/MIN
[2025-01-10 07:23] VITALS: PULSE 67; RESP 16; O2SAT 98
[2025-01-10] MEDS: potassium Cl 20 mEq SR tablet PO PRN (09:01)
[2025-01-10] MEDS ORDERED: POTA-207 PO (10:35)
[2025-01-10 10:53] VITALS: RESP 18
[2025-01-10 11:05] VITALS: BP 134/69; PULSE 76; RESP 22; TEMP 97.9; O2SAT 97
--- NOTE | 2025-01-10 16:34 | DISCHARGE SUMMARY ---
Discharge Summary Providers to CC ~ Discharge Summary Admission Diagnosis: Hyperosmolar non ketotic state Hospital Course DATE OF ADMISSION: 01/08/2025 DATE OF DISCHARGE: 01/10/2025 Discharge Diagnosis\Comment: Nonketotic hyperosmolar syndrome, severe noncompliance with diabetic regimen with severely uncontrolled diabetes mellitus type 2, DESTINY likely secondary to vasomotor nephropathy, right shoulder strain, hypokalemia, history of HFpEF, permanent atrial fibrillation, chronic COPD with chronic respiratory failure Operations\Procedures: None Consultants: None Complications: None Condition on DC: Stable New Medications: Potassium Chloride* (K-Dur*) 20 Meq Tab.prt.sr 2 TAB PO BID, #120 TAB Continued Medications: Allopurinol (Allopurinol) 300 Mg Tablet 300 MG PO DAILY Amitriptyline Hcl* (Elavil*) 50 Mg Tablet 1 TAB PO HS for 30 Days, #30 TAB Atorvastatin Calcium (Atorvastatin Calcium) 80 Mg Tablet 1 TAB PO DAILY Carvedilol (Carvedilol) 6.25 Mg Tablet 1 TAB PO BID Dapagliflozin Propanediol (Farxiga) 10 Mg Tablet 1 TAB PO DAILY for 30 Days, #30 TAB 0 Refills Fenofibrate (Fenofibrate) 54 Mg Tablet 1 TAB PO DAILY for 30 Days, #30 TAB 0 Refills Gabapentin (Neurontin) 300 Mg Capsule 2 CAP PO BID for 30 Days, #90 CAP Insulin Glargine,Hum.rec.anlog (Basaglar Kwikpen U-100) 100 Unit/1 Ml Insuln.pen 65 UNITS SUBCUT BID Lidocaine (Ztlido) 1.8 % Adh..patch Pantoprazole Sodium (Protonix) 20 Mg Tablet.dr 2 TAB PO DAILY Rivaroxaban (Xarelto) 20 Mg Tablet 1 TAB PO QDD Discontinued Medications: Furosemide (Furosemide) 40 Mg Tablet 1 TAB PO BID Metformin HCl (Metformin HCl) 500 Mg Tablet 1 TAB PO BID Metolazone (ZAROXOLYN tablet) 2.5 Mg Tablet 1 TAB PO DAILY Spironolact/Hydrochlorothiazid (Spironolactone-Hctz 25-25 Tab) 25 Mg-25 Mg Tablet 1 TAB PO DAILY for 30 Days, #30 TAB 0 Refills Discharge Summary: I admitted the patient with the following HPI:This is a 57-year-old male who presents to ED with chief complaint of generalized weakness informs me that he has fallen in his knees just gave out. The patient did hit his right shoulder approximately one-week ago in his having difficulty moving his right shoulder. He is a type 2 diabetic and is noncompliant he has been checking his sugars at home and the meter has been reading high for several weeks. The patient has noticed increased urination as well. On arrival to the ED the patient is blood glucose was 842 with a serum osmolality in his serum sodium 117 however his corrected serum sodium was 129. The patient was given 15 units of IV insulin which brought his glucose down to the 500s I started the patient on an insulin drip when I evaluated the patient is blood glucose was in the high 400s the patient is started on 5 units of insulin however his blood glucose dropped to 344 and I decreased the insulin to drip to 3 units followed by 2 units and his blood glucose came back now at 2:46 a.m. stopping insulin drip and placing the patient hyper and hypoglycemic protocol patient had a mild metabolic acidosis with a serum bicarb of 33.7 however his anion gap was 10 and that is the patient is does not have DKA but isn't hyperosmolar nonketotic syndrome. Patient was able to be titrated off of the insulin drip and required significant titration of both the basal insulin and postprandial insulin. The patient informs me takes over 100 units of basal insulin daily. The patient does have continuous glucose monitor and was reading the dietary information given to him and states he is going to change his diet and that his girlfriend has a cooking and will be working on changing food options given to the patient. The patient will check his sugars now fasting and after meals does use a sliding scale insulin and has not been compliant with this in the past however he does endorse going to be compliant now with his insulin regimen. The patient has a history of HFpEF and the patient's LVEF is 70% the patient is on Zaroxolyn and furosemide at home which was not administered during hospitalization and I recommend stopping his medications for now the patient's blood pressure was stable during hospitalization I did recommend stopping as well hydrochlorothiazide. The patient also takes metformin at home which due to his noncompliance and kidney disease the patient is at a high-risk for lactic acidosis from metformin induced. I recommended stopping metformin/ With correction of the patient's blood glucose the patient became significantly hypokalemic however this did improve and a serum potassium on day discharge was 3.2 I did recommend that the patient takes 60 mEq of potassium daily splitting the dose 30 in the morning and 30 at night did write a prescription for the patient as well the patient is to recheck his metabolic panel in two days. The patient when falling prior to arriving at the hospital did sustain a right shoulder injury and has a significantly decreased range of motion in internal and external rotation in his limited in ab duction as well and CT scan of the right shoulder was obtained which was negative for any malalignment or acute fractures. The patient was admitted with a acute kidney injury his creatinine was 2.31 on admission and his acute kidney injury was likely secondary to vasomotor nephropathy due to severe volume depletion with IV resuscitation in his renal function did improve and creatinine was 1.06 on the day of discharge. The patient has chronic COPD with chronic respiratory failure on 3 L oxygen at baseline did not have any acute exacerbation or issues with his COPD and was at baseline during hospitalization neb treatments were ordered for the patient. Gen. No acute distress alert and oriented 4 Lungs clear to ascultation bilaterally, no wheezes rales or rhonchi appreciated Heart normal sinus rhythm no murmurs rubs or clicks noted Abdomen soft nontender bowel sounds are normoactive Lower extremities no clubbing cyanosis, nor edema appreciated bilaterally The patient felt ready to be discharged and was medically cleared to be discharged on 01/10/2025 The patient was seen and evaluated on day of discharge. Time spent on discharge 45 minutes *Problems/Diagnosis: (1) Uncontrolled diabetes mellitus Status: Acute Total Time Spent on D/C: > 30 Minutes Date of Service: Jan 10, 2025 Billing Provider: HOLLY HESS DO Common Visit Codes: [id number]-HPJ/OBS DISCH DAY >30min Problem Qualifiers (1) Uncontrolled diabetes mellitus: Qualified Codes: E11.65 - Type 2 diabetes mellitus with hyperglycemia HOLLY HESS DO Jan 10, 2025 16:01
== END 2025-01-10 12:40 | disposition home or self-care (01) | DRG 420 ==
LOC: ER 08:51 → ED HOLD 11:34 → EDBEDREQTM 14:28 → PCU 3S 14:53
PROVIDERS: ADMIT Family Medicine; ATTEND Family Medicine
DX: E11.00 Type 2 diabetes mellitus with hyperosmolarity without nonketotic hyperglycemic-hyperosmolar coma (NKHHC) (principal); N17.0 Acute kidney failure with tubular necrosis; E87.20 Acidosis, unspecified; J96.10 Chronic respiratory failure, unspecified whether with hypoxia or hypercapnia; E11.22 Type 2 diabetes mellitus with diabetic chronic kidney disease; E86.9 Volume depletion, unspecified; I48.91 Unspecified atrial fibrillation; E78.00 Pure hypercholesterolemia, unspecified; I13.0 Hypertensive heart and chronic kidney disease with heart failure and stage 1 through stage 4 chronic kidney disease, or unspecified chronic kidney disease; E87.6 Hypokalemia; I50.32 Chronic diastolic (congestive) heart failure; G47.33 Obstructive sleep apnea (adult) (pediatric); J44.89 Other specified chronic obstructive pulmonary disease; N18.9 Chronic kidney disease, unspecified; R29.6 Repeated falls; S46.811A Strain of other muscles, fascia and tendons at shoulder and upper arm level, right arm, initial encounter; W18.39XA Other fall on same level, initial encounter; Y93.89 Activity, other specified; Y92.89 Other specified places as the place of occurrence of the external cause; Z79.84 Long term (current) use of oral hypoglycemic drugs; Z79.01 Long term (current) use of anticoagulants; Z82.49 Family history of ischemic heart disease and other diseases of the circulatory system; Z91.199 Patient's noncompliance with other medical treatment and regimen due to unspecified reason; Z79.899 Other long term (current) drug therapy
CPT/HCPCS: 36415; 71045; 73200; 80048; 80053; 81001; 82948; 83036; 83735; 83880; 83930; 84132; 84484; 85025; 87081; 93005; 93306; 94640; 94760; 96361; 96374; 96375; 99285; A4615; A6258; G0378; J1815; J3480; J7030

== ENCOUNTER 2025-02-25 07:16 | Outpatient (CLI) | payer MEDICAID ==
[~2025-02-25] VITALS: Ht 180.3 cm; Wt 122.5 kg
[~2025-02-25 07:16] MED LIST changes: -ALBU6.7H14 INH; +ALLO300T8 PO; +AMIT50TA15 PO; -AMLO10TA PO; +ATOR-2 PO; -ATOR40TA71 PO; -BUDE10.22 INH; +DAPA10TA PO; +FENO54TA PO; -FURO40TA4 PO; -HYDR25TA5 PO; -LACT1CAP74 PO; +LIDO1ADH58; -LISI40TA20 PO; -METF-1203 PO; -POTA-206 PO; +POTA-207 PO; -SEMA2PEN PO; -ZAR2.5T PO
[2025-02-25 07:47] LABS: ABG BASE EXCESS -3.5 mmol/L (-2.0-3.0); ABG HCO3 20.4 mmol/L (21.0-28.0); ABG OXYGEN SATURATION 96.6 % (94.0-98.0); ABG PCO2 (T) 33.5 mmHg (35.0-48.0); ABG PH (T) 7.403 (7.350-7.450); ABG PO2 (T) 90.4 mmHg (83.0-108.0); ALLEN'S TEST POSITIVE; FCOHb 0.8 % (0.5-1.5); FHHb 3.4 % (0.0-5.0); FIO2 32.0 mmHg/%; FLOW 3 L/min; FMetHb 0.3 % (0.0-1.5); FO2Hb 95.5 % (94.0-98.0); PATIENT TEMPERATURE 37.0; TOTAL HEMOGLOBIN 13.0 G/dl (13.5-17.5)
[2025-02-25 07:50] VITALS: PULSE 95; RESP 18; O2SAT 96
[2025-02-25] MEDS: albuterol 2.5 MG/3 ML nebule NEB ONE (08:26)
[2025-02-25 09:03] VITALS: PULSE 88; RESP 22
--- NOTE | 2025-02-26 15:55 | PROCEDURE NOTE - Respiratory ---
Procedure Note-Respiratory Providers to CC Copies To 1: PAKO BOLANOS MD Procedure Name: This is a complete pulmonary function study dated February 25, 2025. Hemoglobin measurement was done as part of the study. There was also a blood gas obtained from this patient on the same date. Spirometry measurements: The forced vital capacity is in the lower range of normal. The FEV1 is clearly reduced. The FEV1 ratio is also reduced. Some of the flow rate measurements are clearly reduced. After inhaled bronchodilator was administered some of the flow rates measurements show significant improvement. Spirometry documents obstructive ventilatory defect in the avap-[id number] category. Lung volume measurements: The total lung capacity and the functional residual capacity measurements are normal. The residual volume is borderline elevated. This suggests some degree of air trapping within the lungs. Lung diffusion measurement: The DLCO measurement is borderline reduced. It is noted that the KVO measurement is normal and the alveolar volume measurement is normal. The hemoglobin measurement is in the normal range. Airway resistance measurement: The airway resistance is normal. Overall conclusion: This study is abnormal. There is evidence for obstructive ventilatory defect in the owkh-ic-[id number] category. The lung diffusion capacity is borderline reduced. There is no evidence for restrictive ventilatory defect. The patient seems to show very slight improvement with inhaled bronchodilator. We have no previous studies for comparison. A blood gas was drawn from this patient while the patient was breathing 3 L nasal cannula oxygen. The blood pH is normal. The pCO2 is borderline reduced. The oxygen level measured at 90 mmHg which documents a significant widening of the AA gradient. MAE FELTON MD Feb 26, 2025 15:55
== END 2025-02-25 23:59 | disposition home or self-care (01) ==
LOC: RT 07:16
PROVIDERS: ATTEND Internal Medicine Cardiovascular Disease
DX: R05.9 Cough, unspecified (principal); J84.10 Pulmonary fibrosis, unspecified; J84.112 Idiopathic pulmonary fibrosis; R06.02 Shortness of breath
CPT/HCPCS: 36600; 82803; 85018; 94060; 94727; 94729; 94760